=== PATIENT | female | born 1995 | race Caucasian/White ===

== ENCOUNTER 2017-01-12 02:46 | Inpatient (IN) | payer OTHER ==
[~2017-01-12] VITALS: Ht 172.7 cm; Wt 104.5 kg
[2017-01-12] VITALS (7 sets, daily range): BP systolic 101–166; BP diastolic 58–99
[~2017-01-12 02:46] MED LIST: ACET50TA PO; IBUP-1114 PO; PRENTAB29 PO; bacid PO; doxycycline PO
[2017-01-12 04:09] LABS: ALBUMIN 3.7 GM/DL (3.2-5.2); ALBUMIN/GLOBULIN RATIO 0.93 (1.00-1.93); ALKALINE PHOSPHATASE 211 U/L (45-117); ALT/SGPT 752 U/L (12-78); AMYLASE 55 U/L (25-115); ANION GAP 7 MEQ/L (8-16); AST/SGOT 317 U/L (15-37); BILIRUBIN,DIRECT 4.2 MG/DL (0.0-0.2); BILIRUBIN,TOTAL 5.4 MG/DL (0.2-1.0); BLOOD UREA NITROGEN 10 MG/DL (7-18); CALCIUM LEVEL 8.7 MG/DL (8.5-10.1); CARBON DIOXIDE LEVEL 28 MEQ/L (21-32); CHLORIDE LEVEL 105 MEQ/L (98-107); CREATININE FOR GFR 0.81 MG/DL (0.55-1.02); GLOMERULAR FILTRATION RATE > 60.0 (>60); GLUCOSE, FASTING 102 MG/DL (70-105); POTASSIUM SERUM 3.6 MEQ/L (3.5-5.1); SODIUM LEVEL 140 MEQ/L (136-145); TOTAL PROTEIN 7.7 GM/DL (6.4-8.2)
[2017-01-12 04:15] LABS: BASO # 0.1 K/mm3 (0.0-0.2); BASO % 0.6 % (0.0-1.0); EOS # 0.1 K/mm3 (0.0-0.50); EOS % 0.9 % (0.0-3.0); LARGE UNSTAINED CELL # 0.1 K/mm3 (0.0-0.4); LARGE UNSTAINED CELL % 1.1 % (0.0-4.0); LYMPH # 1.6 K/mm3 (1.5-6.5); LYMPH % 15.2 % (24.0-44.0); MEAN CORPUSCULAR HEMOGLOBIN 28.1 pg (27.0-33.0); MEAN CORPUSCULAR HGB CONC 32.6 g/dl (32.0-36.5); MONO # 0.4 K/mm3 (0.0-0.8); MONO % 3.5 % (0.0-5.0); NEUTROPHILS # 8.3 K/mm3 (1.8-7.7); NEUTROPHILS % 78.6 % (36.0-66.0); PLATELET COUNT, AUTOMATED 238 k/mm3 (150-450); RED CELL DISTRIBUTION WIDTH 15.1 % (11.5-14.5); WHITE BLOOD COUNT 10.6 K/mm3 (4.0-10.0)
--- NOTE | 2017-01-12 05:10 | REPUSA ---
CLINICAL HISTORY: Abdominal pain. TECHNIQUE: Realtime sonographic images were obtained in multiple projections. COMMENTS: The liver is of normal size, parenchyma demonstrates normal echogenicity. No discrete hepatic mass is seen. There is no intra or extrahepatic biliary ductal dilatation. CBD measures 4.9 mm. The gallbladder con tains tiny calculi. The gallbladder wall is not thickened and there is no pericholecystic fluid. Ther e is no abdominal ascites. The right kidney measures 12.5x6.1x4.5 cm, free of hydronephrosis. IMPRESSION: Cholelithiasis without acute cholecystitis. Thank you for your kind referral of this patient.
[2017-01-12] MEDS ORDERED: MORPHINE 4 MG/ML 1ML SYRINGE As Ordered ONE (05:21)
[2017-01-12] MEDS ORDERED: MORPHINE 4 MG/ML 1ML SYRINGE IV PRN (06:00)
[2017-01-12] MEDS ORDERED: ACETAMINOPHEN TAB 650MG DOSE (2X325MG) PO PRN (06:00)
[2017-01-12] MEDS ORDERED: ONDANSETRON 4MG/2ML VIAL (J2405) IV PRN ×2 (06:00→19:30)
[2017-01-12] MEDS ORDERED: CIPROFLOXACIN/D5W 400 MG/200 ML BAG (J0744) As Ordered ONE ×2 (06:36→19:16)
[2017-01-12] MEDS ORDERED: metroNIDAZOLE/NACL 500MG(5MG/ML)100 ML BAG (S0030) As Ordered ONE ×2 (07:42→16:06)
--- NOTE | 2017-01-12 07:58 | EDDOCDS ---
Nurse's Notes [facility] Name: Mary Ann Granado Age: 21 yrs Sex: Female : 1995 Arrival Date: 01/12/2017 Time: 02:46 Bed 7 Private MD: Diagnosis: Other cholelithiasis with obstruction;Cholelithiasis Presentation: 01/12 03:03 Presenting complaint: Patient states: Epigastric pain for past couple of weeks. "I ld5 can't take it anymore." + nausea/vomiting. Risk factors: the patient reports no vaginal bleeding. Adult Sepsis Screening: The patient does not have new or worsening altered mentation. Patient's respiratory rate is less than 22. Systolic blood pressure is greater than 100. Patient has a qSOFA score of 0- Negative Sepsis Screen. Suicide/Homicide risk assessment- the patient denies having any suicidal and/or homicidal ideations and does not present with any other emotional, behavioral or mental health complaints. Status: Patient is not a nutritional services host or dependent. Transition of care: patient was not received from another setting of care. 03:03 Acuity: ZAC Level 3 ld5 03:03 Method Of Arrival: Walkin/Carried/Asstd ld5 Triage Assessment: 03:05 General: Appears in no apparent distress, Behavior is cooperative. Pain: Location: ld5 epigastric area Pain currently is 7 out of 10 on a pain scale. Pain: Quality of pain is described as "feels like someone is holding me". HIV screening NA for this visit Offered previously. Neurological: Level of Consciousness is awake, alert. Respiratory: Airway is patent Respiratory effort is even, unlabored. GI: Reports nausea, vomiting, Denies constipation, diarrhea. : Denies burning with urination, pain with urination. 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 States irregular menses. Recent ld5 Historical: - Allergies: Bactrim; PENICILLINS; - Home Meds: 1. none - PMHx: none; - PSHx: right forearm/ wrist; - Social history: Smoking status: Patient uses tobacco products, current every day smoker. No barriers to communication noted, The patient speaks fluent Cypriot, Speaks appropriately for age. - Family history: Not pertinent. - : The pt / caregiver states he / she is not on anticoagulants. Home medication list is obtained from the patient. - Exposure Risk Screening:: None identified. Screenin:35 Screening information is obtained from the patient. Fall risk: No risks identified. mv5 Assistance ADL's: requires no assistance with activities of daily living. Abuse/DV Screen: The patient / caregiver reports he/she is:. Abuse/DV Screen: The patient / caregiver reports he/she is: not in a situation that causes fear, pain or injury. Nutritional screening: No deficits noted. Advance Directives: There is no active DNR order. home support is adequate. Assessment: 03:33 General: Appears uncomfortable, well nourished, well groomed, Behavior is cooperative, mv5 pleasant, Family at bedside.. Pain: Location: anterior aspect of right lateral abdomen and right upper quadrant Pain currently is 6 out of 10 on a pain scale. Neurological: Level of Consciousness is awake, alert, Oriented to person, place, time. Cardiovascular: Capillary refill < 3 seconds Heart tones S1 S2 present. Respiratory: Airway is patent Respiratory effort is even, unlabored, Respiratory pattern is regular, symmetrical. GI: Abdomen is obese, 3 months post Bowel sounds present X 4 quads. Abd is soft X 4 quads. : No deficits noted. Derm: Skin is pink, warm & dry. 05:27 General: Appears in no apparent distress. Neurological: Respiratory: Airway is patent mv5 Respiratory effort is even, unlabored, Respiratory pattern is regular, symmetrical. Derm: Skin is pink, warm & dry. 05:41 General: Appears in no apparent distress, to be sleeping. Family at bedside. General: mv5 MD in to discuss findings and plan of care.. Respiratory: Airway is patent Respiratory effort is even, unlabored, Respiratory pattern is regular, symmetrical. Derm: Skin is pink, warm & dry. 06:44 General: Appears in no apparent distress, comfortable. Respiratory: Airway is patent mv5 Respiratory effort is even, unlabored, Respiratory pattern is regular, symmetrical. Derm: Skin is pink, warm & dry. 07:53 General: Appears in no apparent distress, comfortable, Behavior is cooperative. Pain: mcp Denies pain. Neurological: No deficits noted. Respiratory: Airway is patent Respiratory effort is even, unlabored. GI: Abdomen is non- distended Abd is soft and non tender X 4 quads. Derm: Skin is pink, warm & dry. Vital Signs: 03:01 BP 134 / 85; Pulse 73; Resp 18; Temp 98.1; Pulse Ox 95% on R/A; Weight 104.33 kg (R); ld5 Height 5 ft. 8 in. (172.72 cm) (R); Pain 7/10; 05:36 BP 117 / 79 (auto/); mv5 05:37 Pulse 60 MON; Pulse Ox 94% ; mv5 06:06 BP 117 / 80 (auto/); mv5 06:06 Pulse 68 MON; Pulse Ox 93% ; mv5 06:36 BP 121 / 75 (auto/); mv5 06:36 Pulse 62 MON; Pulse Ox 91% ; mv5 07:53 BP 120 / 80; Pulse 61; Resp 18; Temp 96.4(O); Pulse Ox 95% on R/A; Pain 0/10; mcp 03:01 Body Mass Index 34.97 (104.33 kg, 172.72 cm) ld5 Vitals: 03:01 Log In Time: January 12, 2017 at 02:46. ld5 ED Course: 02:48 Patient visited by Arcadio Camarillo, Reg. pm4 02:48 Patient moved to Waiting pm4 02:59 Patient moved to Triage 1 ko2 03:04 Triage Initiated ld5 03:06 Patient visited by Diana Francois,VIRIDIANA. ld5 03:06 Daisy Sandoval,RN is Primary Nurse. ld5 03:06 Patient moved to 7 ld5 03:35 The patient / caregiver is instructed regarding the plan of care and ED course. mv5 Accompanied by Family Member, Bed in low position. 03:35 Inserted saline lock: 20 gauge in right antecubital area and blood collected. The mv5 patient tolerated the procedure well. 03:36 Patient visited by Daisy Sandoval,VIRIDIANA. mv5 03:36 [facility] [place] was scanned into [email or web address] and attached to record. hs2 03:48 Twin Rogers DO is Attending Physician. cs11 03:48 Patient visited by Twin Rogers DO. cs11 04:20 Patient moved to Ultrasound dmg 04:44 Patient visited by Tulio Gutierrez PCA. kb5 04:46 Patient moved to 7 dmg 05:14 Ultrasound Abd Limited Returned. EDMS 05:32 Patient visited by Daisy Sandoval RN. mv5 05:38 Giovany Martino MD is Hospitalizing Provider. cs11 07:12 Primary Nurse role handed off by Daisy Sandoval RN mv5 07:53 IV is patent, is free of redness or swelling. with fluids infusing freely. No mcp procedures done that require assistance. Administered Medications: 03:59 Drug: NS 0.9% 1000 ml [sodium chloride 0.9 % intravenous solution] Route: IV; Rate: mv5 bolus; Site: left antecubital; 05:26 Drug: morphine 4 mg [morphine 4 mg/mL intravenous cartridge (1 mL)] Route: IVP; Site: mv5 right antecubital; 05:57 Follow up: Response: No Adverse Reaction mv5 06:43 Drug: Ciprofloxacin 400 mg [ciprofloxacin 400 mg/200 mL in 5 % dextrose intravenous mv5 piggyback] Route: IVPB; Rate: 200 mL/hr; Infused Over: 60 mins; Site: right antecubital; 07:51 Drug: metroNIDAZOLE 500 mg [metronidazole 500 mg/100 mL-sodium chloride(iso) mcp intravenous piggyback] Route: IVPB; Rate: 100 mL/hr; Infused Over: 60 mins; Site: right antecubital; Order Results: Lab Order: CBC with Diff; SPEC'M 01/12/17 03:24 Test: WHITE BLOOD COUNT; Value: 10.6; Range: 4.0-10.0; Abnormal: Above high normal; Units: K/mm3; Status: F Test: RED BLOOD COUNT; Value: 5.22; Range: 4.00-5.40; Units: M/mm3; Status: F Test: HEMOGLOBIN; Value: 14.7; Range: 12.0-16.0; Units: g/dl; Status: F Test: HEMATOCRIT; Value: 44.9; Range: 36.0-47.0; Units: %; Status: F Test: MEAN CORPUSCULAR VOLUME; Value: 86.0; Range: 80.0-96.0; Units: fl; Status: F Test: MEAN CORPUSCULAR HEMOGLOBIN; Value: 28.1; Range: 27.0-33.0; Units: pg; Status: F Test: MEAN CORPUSCULAR HGB CONC; Value: 32.6; Range: 32.0-36.5; Units: g/dl; Status: F Test: RED CELL DISTRIBUTION WIDTH; Value: 15.1; Range: 11.5-14.5; Abnormal: Above high normal; Units: %; Status: F Test: PLATELET COUNT, AUTOMATED; Value: 238; Range: 150-450; Units: k/mm3; Status: F Test: NEUTROPHILS %; Value: 78.6; Range: 36.0-66.0; Abnormal: Above high normal; Units: %; Status: F Test: LYMPH %; Value: 15.2; Range: 24.0-44.0; Abnormal: Below low normal; Units: %; Status: F Test: MONO %; Value: 3.5; Range: 0.0-5.0; Units: %; Status: F Test: EOS %; Value: 0.9; Range: 0.0-3.0; Units: %; Status: F Test: BASO %; Value: 0.6; Range: 0.0-1.0; Units: %; Status: F Test: LARGE UNSTAINED CELL %; Value: 1.1; Range: 0.0-4.0; Units: %; Status: F Test: NEUTROPHILS #; Value: 8.3; Range: 1.8-7.7; Abnormal: Above high normal; Units: K/mm3; Status: F Test: LYMPH #; Value: 1.6; Range: 1.5-6.5; Units: K/mm3; Status: F Test: MONO #; Value: 0.4; Range: 0.0-0.8; Units: K/mm3; Status: F Test: EOS #; Value: 0.1; Range: 0.0-0.50; Units: K/mm3; Status: F Test: BASO #; Value: 0.1; Range: 0.0-0.2; Units: K/mm3; Status: F Test: LARGE UNSTAINED CELL #; Value: 0.1; Range: 0.0-0.4; Units: K/mm3; Status: F Lab Order: MED Profile; [facility] 01/12/17 03:24 Test: GLUCOSE, FASTING; Value: 102; Range: 70-105; Units: MG/DL; Status: F Test: BLOOD UREA NITROGEN; Value: 10; Range: 7-18; Units: MG/DL; Status: F Test: CREATININE FOR GFR; Value: 0.81; Range: 0.55-1.02; Units: MG/DL; Status: F Test: GLOMERULAR FILTRATION RATE; Value: > 60.0; Range: >60; Status: F Test: SODIUM LEVEL; Value: 140; Range: 136-145; Units: MEQ/L; Status: F Test: POTASSIUM SERUM; Value: 3.6; Range: 3.5-5.1; Units: MEQ/L; Status: F Test: CHLORIDE LEVEL; Value: 105; Range: 98-107; Units: MEQ/L; Status: F Test: CARBON DIOXIDE LEVEL; Value: 28; Range: 21-32; Units: MEQ/L; Status: F Test: ANION GAP; Value: 7; Range: 8-16; Abnormal: Below low normal; Units: MEQ/L; Status: F Test: CALCIUM LEVEL; Value: 8.7; Range: 8.5-10.1; Units: MG/DL; Status: F Test Note: ; Units are mL/min/1.73 m2 Chronic Kidney Disease Staging per NKF: Stage I & II GFR >=60 Normal to Mildly Decreased Stage III GFR 30-59 Moderately Decreased Stage IV GFR 15-29 Severely Decreased Stage V GFR <15 Very Little GFR Left ESRD GFR <15 on CUT IN WORKER Lab Order: Liver Profile; [facility] 01/12/17 03:24 Test: AST/SGOT; Value: 317; Range: 15-37; Abnormal: Above high normal; Units: U/L; Status: F Test: ALT/SGPT; Value: 752; Range: 12-78; Abnormal: Above high normal; Units: U/L; Status: F Test: ALKALINE PHOSPHATASE; Value: 211; Range: 45-117; Abnormal: Above high normal; Units: U/L; Status: F Test: BILIRUBIN,TOTAL; Value: 5.4; Range: 0.2-1.0; Abnormal: Above high normal; Units: MG/DL; Status: F Test: BILIRUBIN,DIRECT; Value: 4.2; Range: 0.0-0.2; Abnormal: Above high normal; Units: MG/DL; Status: F Test: TOTAL PROTEIN; Value: 7.7; Range: 6.4-8.2; Units: GM/DL; Status: F Test: ALBUMIN; Value: 3.7; Range: 3.2-5.2; Units: GM/DL; Status: F Test: ALBUMIN/GLOBULIN RATIO; Value: 0.93; Range: 1.00-1.93; Abnormal: Below low normal; Status: F Lab Order: Amylase; SPEC'M 01/12/17 03:24 Test: AMYLASE; Value: 55; Range: 25-115; Units: U/L; Status: F Lab Order: Lipase; SPEC'M 01/12/17 03:24 Test: LIPASE; Value: 357; Range: 73-393; Units: U/L; Status: F Radiology Order: Ultrasound Abd Limited Test: Ultrasound Abd Limited REASON FOR EXAMINATION: Biliary Colic; ; CLINICAL HISTORY: Abdominal pain.; TECHNIQUE: Realtime sonographic images were obtained in multiple projections.; COMMENTS:; The liver is of normal size, parenchyma demonstrates normal echogenicity. No discrete hepatic mass is; seen.; There is no intra or extrahepatic biliary ductal dilatation. CBD measures 4.9 mm. The gallbladder con; tains tiny calculi. The gallbladder wall is not thickened and there is no pericholecystic fluid. Ther; e is no abdominal ascites.; The right kidney measures 12.5x6.1x4.5 cm, free of hydronephrosis.; IMPRESSION:; Cholelithiasis without acute cholecystitis.; Thank you for your kind referral of this patient.; ; Outcome: 05:39 Decision to Hospitalize by Provider. cs11 07:55 Discharge Assessment: patient administered narcotics - yes. Patient was admitted to the [facility] or transferred to another facility. The following High Risk Discharge criteria are identified: None. Admitted to Pediatrics accompanied by tech, via stretcher, with chart. Condition: stable. Ultrasound Study completed. Property :Personal belongings accompany Pt. 07:56 Patient left the ED. [facility] Signatures: Dispatcher [employer] Anna López RN RN [facility] Anna Marie Oneill Kristopher, PCA CORE MICROARCHITECT [email or web address] Diana Francois RN RN ld5 Twin Rogers DO DO cs11 Asia GaffneyRN RN ko2 Malgorzata Dahl, Reg Reg hs2 Arcadio Camarillo, Reg Reg pm4 Daisy Sandoval,RN RN mv5 MTDD
--- NOTE | 2017-01-12 07:58 | EDDOCDS ---
Physician Documentation [facility] Name: Mary Ann Granado Age: 21 yrs Sex: Female : 1995 Arrival Date: 01/12/2017 Time: 02:46 Bed 7 Private MD: Disposition: 01/12/17 05:39 Hospitalization ordered by Giovany Martino for Inpatient Admission. Preliminary diagnosis are Other cholelithiasis with obstruction, Cholelithiasis. - Bed requested for M PED. - Status is Inpatient Admission. mcp - Condition is Stable. - Problem is an ongoing problem. - Symptoms are unchanged. Historical: - Allergies: Bactrim; PENICILLINS; - Home Meds: 1. none - PMHx: none; - PSHx: right forearm/ wrist; - Social history: Smoking status: Patient uses tobacco products, current every day smoker. No barriers to communication noted, The patient speaks fluent [place], Speaks appropriately for age. - Family history: Not pertinent. - : The pt / caregiver states he / she is not on anticoagulants. Home medication list is obtained from the patient. - Exposure Risk Screening:: None identified. 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 States irregular menses. Recent ld5 Vital Signs: 03:01 BP 134 / 85; Pulse 73; Resp 18; Temp 98.1; Pulse Ox 95% on R/A; Weight 104.33 kg / ld5 230.01 lbs (R); Height 5 ft. 8 in. (172.72 cm) (R); Pain 7/10; 05:36 BP 117 / 79 (auto/); mv5 05:37 Pulse 60 MON; Pulse Ox 94% ; mv5 06:06 BP 117 / 80 (auto/); mv5 06:06 Pulse 68 MON; Pulse Ox 93% ; mv5 06:36 BP 121 / 75 (auto/); mv5 06:36 Pulse 62 MON; Pulse Ox 91% ; mv5 07:53 BP 120 / 80; Pulse 61; Resp 18; Temp 96.4(O); Pulse Ox 95% on R/A; Pain 0/10; mcp 03:01 Body Mass Index 34.97 (104.33 kg, 172.72 cm) ld5 MDM: 03:36 [facility] Payment Agreement was scanned into [employer] and attached to record. hs2 03:48 IV Saline Lock ordered. cs11 03:48 NS 0.9% 1000 ml IV at bolus once ordered. cs11 03:49 CBC with Diff Ordered. EDMS 03:49 MED Profile Ordered. EDMS 03:49 Liver Profile Ordered. EDMS 03:49 Amylase Ordered. EDMS 03:49 Lipase Ordered. EDMS 03:49 Ultrasound Abd Limited Ordered. EDMS 03:49 Financial registration complete. hs2 04:48 morphine 4 mg IVP once ordered. cs11 05:30 CBC with Diff Reviewed. cs11 05:30 MED Profile Reviewed. cs11 05:30 Liver Profile Reviewed. cs11 05:30 Amylase Reviewed. cs11 05:30 Lipase Reviewed. cs11 05:30 Ultrasound Abd Limited Reviewed. cs11 05:35 BED REQUEST+ADM ordered. EDMS 06:05 Admission / Observation Status ordered. EDMS 06:05 NPO DIET ordered. EDMS 06:36 Ciprofloxacin 400 mg IVPB at 200 mL/hr once over 60 mins ordered. nov 07:51 metroNIDAZOLE 500 mg IVPB at 100 mL/hr once over 60 mins ordered. mcp Administered Medications: 03:59 Drug: NS 0.9% 1000 ml [sodium chloride 0.9 % intravenous solution] Route: IV; Rate: mv5 bolus; Site: left antecubital; 05:26 Drug: morphine 4 mg [morphine 4 mg/mL intravenous cartridge (1 mL)] Route: IVP; Site: mv5 right antecubital; 05:57 Follow up: Response: No Adverse Reaction mv5 06:43 Drug: Ciprofloxacin 400 mg [ciprofloxacin 400 mg/200 mL in 5 % dextrose intravenous mv5 piggyback] Route: IVPB; Rate: 200 mL/hr; Infused Over: 60 mins; Site: right antecubital; 07:51 Drug: metroNIDAZOLE 500 mg [metronidazole 500 mg/100 mL-sodium chloride(iso) mcp intravenous piggyback] Route: IVPB; Rate: 100 mL/hr; Infused Over: 60 mins; Site: right antecubital; Signatures: Dispatcher [employer] EDMS Xenia Guadarrama RN RN jan Peters, Mary, RN RN mcp Dickerson, Laura, RN RN ld5 Twin Rogers, DO cs11 Douglas Rainey RN RN [facility] Malgorzata Dahl, Reg Reg hs2 Vannedery,Daisy,RN RN mv5 The chart was reviewed and I authenticate all verbal orders and agree with the evaluation and treatment provided.Attachments: 03:36 [facility] Payment Agreement hs2 MTDD
[2017-01-12] MEDS: LR 1,000 ML IV SCH ×3 (09:01→21:58)
--- NOTE | 2017-01-12 09:35 | HPE ---
DATE OF ADMISSION: 01/12/2017 CHIEF COMPLAINT: Abdominal pain. HISTORY OF PRESENT ILLNESS: Ms. Granado is a healthy 21-year-old female, moderately obese with a body mass index (BMI) of 35, who presented herself to the emergency department early this morning with complaints of ongoing history of midepigastric pain, sometimes associated nausea and vomiting. The patient reports this has been going on for at least 1-1/2 months. She had intermittent episodes of midepigastric pain, sometimes radiating to her right side, mostly postprandial, especially with fatty food intake. She describes the pain as sharp, boring, going towards her right side and back area, usually after meals and gets better after a few hours or overnight. Sometimes this wakes her up in the middle of the night for the past week. This has been continuous with worsening pain at night. Last night, this would not get better. She reports one episode of vomiting. She is not able to tolerate any food. She denies any associated fevers or chills. No associated sick contacts. Due to the severity of pain, she presented herself to the emergency department. ALLERGIES: To BACTRIM and to PENICILLIN. HOME MEDICATIONS: None. PAST MEDICAL HISTORY: No chronic medical illness. PAST SURGICAL HISTORY: Right forearm/wrist surgery. GYNECOLOGIC HISTORY: G1, P1, gave via vaginal route back in September 2016. Reports preeclampsia that time. Denies gestational diabetes. REVIEW OF SYSTEMS: The patient reports mild loss in weight. This is voluntary. She denies fevers, chills. She reports some mild anorexia due to the pain. She denies any blurring of vision, problems with her hearing. She denies any problems with swallowing, dysphagia, hoarseness in her voice. She denies any neck pains. Denies any chest pains or palpitations or paroxysmal nocturnal dyspnea. She denies any dyspnea on effort. No chronic cough or colds reported. Gastrointestinal symptoms enumerated in the history of present illness (HPI). She denies any dysuria, hematuria, nocturia. No history of diabetes, gestational diabetes reported. No thyroid problems. Denies polydipsia, polyphagia, polyuria. No heat or cold intolerance. She denies any bleeding or clotting problems. Denies any severe psychiatric impairment. She has recently a fairly uneventful . Did have some mild preeclampsia, delivered vaginally without any problems. EXAMINATION: On presentation, her initial vitals at about 3 in the morning shows blood pressure of 134/85, pulse rate is 73, respiratory of 18, temperature of 98.1, pulse oximetry reading 95% in room air, weight is 104.3 kg, height is 172 cm, gives her a BMI of 35. Initial pain rated at 7/10, currently rates pain as 4/10. The patient is seen laying in a bed, appears comfortable. No acute distress. She is awake, alert, and oriented. She is cooperative. Skin is mildly jaundiced. A mildly icteric sclerae. [place] palpebral conjunctiva. She is normocephalic, atraumatic. Lips appear mildly dry. No facial asymmetry. No thyromegaly. Neck is supple. No obvious lymphadenopathy. No chest wall abnormalities. Lung sounds are clear to auscultation bilaterally. No wheezing appreciated. Heart rate and rhythm is regular without any murmurs. Abdomen: Is soft, moderately obese, and rounded, nondistended. Minimally tender over her epigastric area. No rebound or guarding appreciated. Nontender on the lateral abdomen bilaterally. No umbilical or groin herniations. No hepatosplenomegaly. Extremities: Without any edema, deformities. LABORATORIES: White cell count is 10.6, hemoglobin 14.7, hematocrit 44.9, platelet count is 238, neutrophils are 79%. Sodium is 148, potassium is 3.6, chloride is 105, CO2 of 28, BUN of 10, creatinine 0.81, total bilirubin is 5.4, with direct fraction of 4.2, AST 317, ALT 752, alkaline phosphatase is 211, albumin is 3.7, amylase is 55, lipase of 357. IMAGING STUDIES: An abdominal ultrasound was performed in the emergency room. It shows common bile duct measuring 4.9 mm, which is upper limit of normal for her. Gallbladder wall is not thickened. There is no pericholecystic fluid. No abdominal ascites. IMPRESSION: 1. Jaundice secondary to biliary obstruction, most likely from a choledocholithiasis. 2. Cholelithiasis. 3. Moderate obesity. PLAN: The patient is admitted under my service. She was made nothing by mouth. We have started on ciprofloxacin and metronidazole for coverage for possible biliary infection secondary to the obstruction. She will need an endoscopic retrograde cholangiopancreatography (ERCP). I have contacted Dr. Galvez, and he will see the patient. I will leave it up to him if he needs any further imaging prior to the ERCP. I have also discussed with the patient performing cholecystectomy. This can be done either during this admission or an interval cholecystectomy, usually short interval is only needed, given that there is not much inflammation on the initial imaging studies. Otherwise, no signs of sepsis. No signs of cholangitis. Will keep her nothing by mouth while she is being evaluated by our gastroenterology colleague. I have discussed the plans with her. She is in agreement with our plan of therapy. No questions, concerns voiced out at this point.
[2017-01-12] MEDS: SENOKOT S TAB PO SCH ×2 (11:50→20:38)
[2017-01-12] MEDS ORDERED: ISOVUE-300 61% 50ML VIAL (Q9967) As Ordered ONE ×2 (13:18→18:25)
[2017-01-12] MEDS: NORCO, ANEXSIA 5/325MG TABLET (HYDROcodone/ACETAMINOPHEN) PO PRN ×2 (14:58→20:51)
[2017-01-12] MEDS ORDERED: LIDOCAINE 2% INJ 100 MG/5 ML SDV (FOR ANES.) As Ordered ONE (15:44)
[2017-01-12] MEDS ORDERED: fentaNYL 250 MCG/5 ML INJECTION (J3010) As Ordered ONE (15:44)
[2017-01-12] MEDS ORDERED: MIDAZOLAM INJ 2 MG/2 ML VIAL (J2250) As Ordered ONE (15:44)
[2017-01-12] MEDS ORDERED: PROPOFOL 200 MG/20 ML VIAL As Ordered ONE (15:44)
[2017-01-12] MEDS: metroNIDAZOLE 500 MG in APPROPRIATE DILUENT 1 EA IV SCH (16:00)
[2017-01-12 16:29] LABS: CONTROL LINE HCG INT CTR LINE PRESENT
[2017-01-12] MEDS ORDERED: ROCURONIUM BROMIDE 50 MG/5 ML VIAL As Ordered ONE (16:54)
[2017-01-12] MEDS ORDERED: ONDANSETRON 4MG/2ML VIAL (J2405) As Ordered ONE ×2 (17:04→19:04)
[2017-01-12] MEDS ORDERED: SUCCINYLCHOLINE 100 MG/5 ML SYRINGE (J0330) As Ordered ONE (17:05)
[2017-01-12] MEDS ORDERED: NEOSTIGMINE 1MG/ML 5 ML SYRINGE (J2710) As Ordered ONE (17:06)
[2017-01-12] MEDS ORDERED: GLYCOPYRROLATE INJ 0.2 MG/ML 2 ML VIAL As Ordered ONE (17:06)
[2017-01-12] MEDS ORDERED: ISOVUE-300 61% 50ML VIAL (Q9967) XX ONE (17:08)
--- NOTE | 2017-01-12 18:56 | ROOR ---
Patient Name: Mary Ann Granado Procedure Date: 01/12/2017 4:37 PM Date of : 1995 Age: 21 Room: Main OR Gender: Female Note Status: Finalized Procedure: ERCP Indications: Evaluation and possible treatment of bile duct stone(s), Jaundice Providers: Claude GALVEZ MD Referring MD: 2. Inpatient 2. Inpatient Requesting Provider: Medicines: General Anesthesia Complications: No immediate complications. Procedure: Pre-Anesthesia Assessment: - The heart rate, respiratory rate, oxygen saturations, blood pressure, adequacy of pulmonary ventilation, and response to care were monitored throughout the procedure. The Duodenoscope was introduced through the mouth, and advanced to the duodenum and used to inject contrast into the bile duct and ventral pancreatic duct. The ERCP was technically difficult and complex due to challenging cannulation. Successful completion of the procedure was aided by double wire technique. The patient tolerated the procedure well. Findings: The plumber supervisor film was normal. The esophagus was successfully intubated under direct vision. The scope was advanced to a normal major papilla in the descending duodenum without detailed examination of the pharynx, larynx and associated structures, and upper GI tract. The upper GI tract was grossly normal. The ventral pancreatic duct was deeply cannulated. Contrast was injected. I personally interpreted the pancreatic duct images. There was appropriate flow of contrast through the ducts. Image quality was adequate. Opacification of the ventral pancreatic duct in the head of the pancreas was successful. The maximum diameter of the ducts was 2 mm. The ventral pancreatic duct in the head of the pancreas was normal. A straight Roadrunner wire was passed into the biliary tree. The bile duct was then deeply cannulated over the guidewire. Contrast was injected. Opacification of the main bile duct was successful. The maximum diameter of the ducts was 8 mm. The lower third of the main bile duct contained two stones, the largest of which was 5 mm in diameter. Choledocholithiasis was found in a nondilated duct. An 8 mm biliary sphincterotomy was made with a monofilament traction (standard) sphincterotome using ERBE electrocautery. There was no post-sphincterotomy bleeding. The biliary tree was swept with a 9 mm balloon starting at the bifurcation. Two stones were removed. No stones remained. One 4 Fr by 3 cm temporary stent with a 3/4 internal pigtail was placed into the ventral pancreatic duct. Clear fluid flowed through the stent. The stent was in good position. Impression: - Choledocholithiasis was found. Complete removal was accomplished by biliary sphincterotomy and balloon extraction. - A biliary sphincterotomy was performed. - The biliary tree was swept. - One temporary stent was placed into the ventral pancreatic duct. Recommendation: - Indomethacin 50 mg suppository. 2 suppositories RI post op. - Observe patient's clinical course. - Surgical consultation for consideration of cholecystectomy. - Clear liquid diet today. - Confirm spontaneous stent passage by performing a KUB x-ray in 2 weeks. Claude Galvez MD Claude GALVEZ MD 01/12/2017 6:55:43 PM This report has been signed electronically. Number of Addenda: 0 Note Initiated On: 01/12/2017 4:37 PM Estimated Blood Loss: Estimated blood loss: none.
[2017-01-12] MEDS ORDERED: INDOMETHACIN 50 MG SUPPOSITORY (INDOCIN) As Ordered ONE (19:12)
[2017-01-12] MEDS: CIPROFLOXACIN 400 MG in APPROPRIATE DILUENT 1 EA IV SCH (19:25)
[2017-01-12] MEDS ORDERED: LR 1,000 ML IV SCH (19:30)
[2017-01-12] MEDS ORDERED: fentaNYL 100 MCG/2 ML INJECTION (J3010) IV PRN (19:30)
[2017-01-12] MEDS ORDERED: INDOMETHACIN 50 MG SUPPOSITORY (INDOCIN) PR ONE (19:30)
[2017-01-12] MEDS ORDERED: METOCLOPRAMIDE INJ 10MG/2ML VIAL (J2765) As Ordered ONE (19:41)
[2017-01-12] MEDS ORDERED: METOCLOPRAMIDE INJ 10MG/2ML VIAL (J2765) IV PRN (20:00)
[2017-01-13] MEDS: LR 1,000 ML IV SCH ×3 (00:50→23:53)
[2017-01-13] MEDS: metroNIDAZOLE 500 MG in APPROPRIATE DILUENT 1 EA IV SCH ×4 (00:50→23:53)
[2017-01-13 04:00] VITALS: BP 92/49
[2017-01-13] MEDS: CIPROFLOXACIN 400 MG in APPROPRIATE DILUENT 1 EA IV SCH ×2 (06:40→18:15)
[2017-01-13 08:00] VITALS: BP 126/65
[2017-01-13] MEDS: SENOKOT S TAB PO SCH ×2 (08:29→21:00)
[2017-01-13] MEDS: NORCO, ANEXSIA 5/325MG TABLET (HYDROcodone/ACETAMINOPHEN) PO PRN (08:40)
[2017-01-13 08:44] LABS: BASO % 0.5 % (0.0-1.0); EOS # 0.1 K/mm3 (0.0-0.50); EOS % 1.1 % (0.0-3.0); LARGE UNSTAINED CELL # 0.1 K/mm3 (0.0-0.4); LARGE UNSTAINED CELL % 1.4 % (0.0-4.0); LYMPH # 1.8 K/mm3 (1.5-6.5); MEAN CORPUSCULAR HEMOGLOBIN 28.1 pg (27.0-33.0); MEAN CORPUSCULAR HGB CONC 31.9 g/dl (32.0-36.5); MEAN CORPUSCULAR VOLUME 88.3 fl (80.0-96.0); MONO # 0.4 K/mm3 (0.0-0.8); NEUTROPHILS # 4.6 K/mm3 (1.8-7.7); PLATELET COUNT, AUTOMATED 211 k/mm3 (150-450)
[2017-01-13 08:45] LABS: DIFF SLIDE NUMBER 155
[2017-01-13 09:30] LABS: ALKALINE PHOSPHATASE 189 U/L (45-117); ALT/SGPT 459 U/L (12-78); AMYLASE 323 U/L (25-115); ANION GAP 9 MEQ/L (8-16); BLOOD UREA NITROGEN 5 MG/DL (7-18); CALCIUM LEVEL 8.4 MG/DL (8.5-10.1); CARBON DIOXIDE LEVEL 26 MEQ/L (21-32); CHLORIDE LEVEL 107 MEQ/L (98-107); CREATININE FOR GFR 0.75 MG/DL (0.55-1.02); GLOMERULAR FILTRATION RATE > 60.0 (>60); GLUCOSE, FASTING 95 MG/DL (70-105); POTASSIUM SERUM 3.8 MEQ/L (3.5-5.1); SODIUM LEVEL 142 MEQ/L (136-145)
[2017-01-13 09:31] LABS: ALBUMIN 3.2 GM/DL (3.2-5.2); ALBUMIN/GLOBULIN RATIO 0.97 (1.00-1.93); AST/SGOT 121 U/L (15-37); TOTAL PROTEIN 6.5 GM/DL (6.4-8.2)
[2017-01-13 09:33] LABS: BILIRUBIN,TOTAL 5.1 MG/DL (0.2-1.0)
[2017-01-13 16:00] VITALS: BP 133/76
[2017-01-13 20:00] VITALS: BP 128/80
[2017-01-14] VITALS (7 sets, daily range): BP systolic 110–174; BP diastolic 64–86
[2017-01-14] MEDS: CIPROFLOXACIN 400 MG in APPROPRIATE DILUENT 1 EA IV SCH ×2 (06:25→19:00)
[2017-01-14] MEDS: LR 1,000 ML IV SCH ×3 (06:25→20:43)
[2017-01-14 07:09] LABS: BASO % 0.6 % (0.0-1.0); EOS # 0.1 K/mm3 (0.0-0.50); LARGE UNSTAINED CELL # 0.2 K/mm3 (0.0-0.4); LARGE UNSTAINED CELL % 2.5 % (0.0-4.0); LYMPH # 1.8 K/mm3 (1.5-6.5); LYMPH % 29.1 % (24.0-44.0); MEAN CORPUSCULAR HEMOGLOBIN 28.1 pg (27.0-33.0); MEAN CORPUSCULAR HGB CONC 32.3 g/dl (32.0-36.5); MEAN CORPUSCULAR VOLUME 87.1 fl (80.0-96.0); MONO # 0.3 K/mm3 (0.0-0.8); MONO % 4.7 % (0.0-5.0); NEUTROPHILS # 3.7 K/mm3 (1.8-7.7); NEUTROPHILS % 62.1 % (36.0-66.0); PLATELET COUNT, AUTOMATED 187 k/mm3 (150-450); RED CELL DISTRIBUTION WIDTH 15.5 % (11.5-14.5)
[2017-01-14 07:27] LABS: ALBUMIN 3.1 GM/DL (3.2-5.2); ALBUMIN/GLOBULIN RATIO 0.97 (1.00-1.93); ALKALINE PHOSPHATASE 181 U/L (45-117); ALT/SGPT 323 U/L (12-78); AMYLASE 204 U/L (25-115); ANION GAP 8 MEQ/L (8-16); AST/SGOT 68 U/L (15-37); BLOOD UREA NITROGEN 5 MG/DL (7-18); CALCIUM LEVEL 8.5 MG/DL (8.5-10.1); CARBON DIOXIDE LEVEL 27 MEQ/L (21-32); CHLORIDE LEVEL 107 MEQ/L (98-107); CREATININE FOR GFR 0.61 MG/DL (0.55-1.02); GLOMERULAR FILTRATION RATE > 60.0 (>60); GLUCOSE, FASTING 78 MG/DL (70-105); POTASSIUM SERUM 3.8 MEQ/L (3.5-5.1); SODIUM LEVEL 142 MEQ/L (136-145); TOTAL PROTEIN 6.3 GM/DL (6.4-8.2)
[2017-01-14] MEDS: metroNIDAZOLE 500 MG in APPROPRIATE DILUENT 1 EA IV SCH ×2 (08:17→15:28)
[2017-01-14] MEDS: SENOKOT S TAB PO SCH ×2 (08:17→20:41)
--- NOTE | 2017-01-14 08:57 | EDDOCDS ---
Nurse's Notes [facility] Name: Mary Ann Granado Age: 21 yrs Sex: Female : 1995 Arrival Date: 01/12/2017 Time: 02:46 Bed 7 Private MD: Diagnosis: Other cholelithiasis with obstruction;Cholelithiasis Presentation: 01/12 03:03 Presenting complaint: Patient states: Epigastric pain for past couple of weeks. "I ld5 can't take it anymore." + nausea/vomiting. Risk factors: the patient reports no vaginal bleeding. Adult Sepsis Screening: The patient does not have new or worsening altered mentation. Patient's respiratory rate is less than 22. Systolic blood pressure is greater than 100. Patient has a qSOFA score of 0- Negative Sepsis Screen. Suicide/Homicide risk assessment- the patient denies having any suicidal and/or homicidal ideations and does not present with any other emotional, behavioral or mental health complaints. 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 Transition of care: patient was not received from another setting of care. 03:03 Acuity: ZAC Level 3 ld5 03:03 Method Of Arrival: Walkin/Carried/Asstd ld5 Triage Assessment: 03:05 General: Appears in no apparent distress, Behavior is cooperative. Pain: Location: ld5 epigastric area Pain currently is 7 out of 10 on a pain scale. Pain: Quality of pain is described as "feels like someone is holding me". HIV screening NA for this visit Offered previously. Neurological: Level of Consciousness is awake, alert. Respiratory: Airway is patent Respiratory effort is even, unlabored. GI: Reports nausea, vomiting, Denies constipation, diarrhea. : Denies burning with urination, pain with urination. 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 States irregular menses. Recent ld5 Historical: - Allergies: Bactrim; PENICILLINS; - Home Meds: 1. none - PMHx: none; - PSHx: right forearm/ wrist; - Social history: Smoking status: Patient uses tobacco products, current every day smoker. No barriers to communication noted, The patient speaks fluent Chinese, Speaks appropriately for age. - Family history: Not pertinent. - : The pt / caregiver states he / she is not on anticoagulants. Home medication list is obtained from the patient. - Exposure Risk Screening:: None identified. Screenin:35 Screening information is obtained from the patient. Fall risk: No risks identified. mv5 Assistance ADL's: requires no assistance with activities of daily living. Abuse/DV Screen: The patient / caregiver reports he/she is:. Abuse/DV Screen: The patient / caregiver reports he/she is: not in a situation that causes fear, pain or injury. Nutritional screening: No deficits noted. Advance Directives: There is no active DNR order. home support is adequate. Assessment: 03:33 General: Appears uncomfortable, well nourished, well groomed, Behavior is cooperative, mv5 pleasant, Family at bedside.. Pain: Location: anterior aspect of right lateral abdomen and right upper quadrant Pain currently is 6 out of 10 on a pain scale. Neurological: Level of Consciousness is awake, alert, Oriented to person, place, time. Cardiovascular: Capillary refill < 3 seconds Heart tones S1 S2 present. Respiratory: Airway is patent Respiratory effort is even, unlabored, Respiratory pattern is regular, symmetrical. GI: Abdomen is obese, 3 months post Bowel sounds present X 4 quads. Abd is soft X 4 quads. : No deficits noted. Derm: Skin is pink, warm & dry. 05:27 General: Appears in no apparent distress. Neurological: Respiratory: Airway is patent mv5 Respiratory effort is even, unlabored, Respiratory pattern is regular, symmetrical. Derm: Skin is pink, warm & dry. 05:41 General: Appears in no apparent distress, to be sleeping. Family at bedside. General: mv5 MD in to discuss findings and plan of care.. Respiratory: Airway is patent Respiratory effort is even, unlabored, Respiratory pattern is regular, symmetrical. Derm: Skin is pink, warm & dry. 06:44 General: Appears in no apparent distress, comfortable. Respiratory: Airway is patent mv5 Respiratory effort is even, unlabored, Respiratory pattern is regular, symmetrical. Derm: Skin is pink, warm & dry. 07:53 General: Appears in no apparent distress, comfortable, Behavior is cooperative. Pain: mcp Denies pain. Neurological: No deficits noted. Respiratory: Airway is patent Respiratory effort is even, unlabored. GI: Abdomen is non- distended Abd is soft and non tender X 4 quads. Derm: Skin is pink, warm & dry. Vital Signs: 03:01 BP 134 / 85; Pulse 73; Resp 18; Temp 98.1; Pulse Ox 95% on R/A; Weight 104.33 kg (R); ld5 Height 5 ft. 8 in. (172.72 cm) (R); Pain 7/10; 05:36 BP 117 / 79 (auto/); mv5 05:37 Pulse 60 MON; Pulse Ox 94% ; mv5 06:06 BP 117 / 80 (auto/); mv5 06:06 Pulse 68 MON; Pulse Ox 93% ; mv5 06:36 BP 121 / 75 (auto/); mv5 06:36 Pulse 62 MON; Pulse Ox 91% ; mv5 07:53 BP 120 / 80; Pulse 61; Resp 18; Temp 96.4(O); Pulse Ox 95% on R/A; Pain 0/10; mcp 03:01 Body Mass Index 34.97 (104.33 kg, 172.72 cm) ld5 Vitals: 03:01 Log In Time: January 12, 2017 at 02:46. ld5 ED Course: 02:48 Patient visited by Arcadio Camarillo, Reg. pm4 02:48 Patient moved to Waiting pm4 02:59 Patient moved to Triage 1 ko2 03:04 Triage Initiated ld5 03:06 Patient visited by Diana Francois,VIRIDIANA. ld5 03:06 Daisy Sandoval,RN is Primary Nurse. ld5 03:06 Patient moved to 7 ld5 03:35 The patient / caregiver is instructed regarding the plan of care and ED course. mv5 Accompanied by Family Member, Bed in low position. 03:35 Inserted saline lock: 20 gauge in right antecubital area and blood collected. The mv5 patient tolerated the procedure well. 03:36 Patient visited by Daisy Sandoval,VIRIDIANA. mv5 03:36 [facility] Payment Agreement was scanned into [employer] and attached to record. hs2 03:48 Twin Rogers DO is Attending Physician. cs11 03:48 Patient visited by Twin Rogers DO. cs11 04:20 Patient moved to Ultrasound dmg 04:44 Patient visited by Tulio Gutierrez PCA. kb5 04:46 Patient moved to 7 dmg 05:14 Ultrasound Abd Limited Returned. EDMS 05:32 Patient visited by Daisy Sandoval RN. mv5 05:38 Giovany Martino MD is Hospitalizing Provider. cs11 07:12 Primary Nurse role handed off by Daisy Sandoval RN mv5 07:53 IV is patent, is free of redness or swelling. with fluids infusing freely. No mcp procedures done that require assistance. 01/13 13:07 T-Sheet-- Draft Copy was scanned into [employer] and attached to record. gb Administered Medications: 01/12 03:59 Drug: NS 0.9% 1000 ml [sodium chloride 0.9 % intravenous solution] Route: IV; Rate: mv5 bolus; Site: left antecubital; 05:26 Drug: morphine 4 mg [morphine 4 mg/mL intravenous cartridge (1 mL)] Route: IVP; Site: mv5 right antecubital; 05:57 Follow up: Response: No Adverse Reaction mv5 06:43 Drug: Ciprofloxacin 400 mg [ciprofloxacin 400 mg/200 mL in 5 % dextrose intravenous mv5 piggyback] Route: IVPB; Rate: 200 mL/hr; Infused Over: 60 mins; Site: right antecubital; 07:51 Drug: metroNIDAZOLE 500 mg [metronidazole 500 mg/100 mL-sodium chloride(iso) mcp intravenous piggyback] Route: IVPB; Rate: 100 mL/hr; Infused Over: 60 mins; Site: right antecubital; Order Results: Lab Order: CBC with Diff; SPEC'M 01/12/17 03:24 Test: WHITE BLOOD COUNT; Value: 10.6; Range: 4.0-10.0; Abnormal: Above high normal; Units: K/mm3; Status: F Test: RED BLOOD COUNT; Value: 5.22; Range: 4.00-5.40; Units: M/mm3; Status: F Test: HEMOGLOBIN; Value: 14.7; Range: 12.0-16.0; Units: g/dl; Status: F Test: HEMATOCRIT; Value: 44.9; Range: 36.0-47.0; Units: %; Status: F Test: MEAN CORPUSCULAR VOLUME; Value: 86.0; Range: 80.0-96.0; Units: fl; Status: F Test: MEAN CORPUSCULAR HEMOGLOBIN; Value: 28.1; Range: 27.0-33.0; Units: pg; Status: F Test: MEAN CORPUSCULAR HGB CONC; Value: 32.6; Range: 32.0-36.5; Units: g/dl; Status: F Test: RED CELL DISTRIBUTION WIDTH; Value: 15.1; Range: 11.5-14.5; Abnormal: Above high normal; Units: %; Status: F Test: PLATELET COUNT, AUTOMATED; Value: 238; Range: 150-450; Units: k/mm3; Status: F Test: NEUTROPHILS %; Value: 78.6; Range: 36.0-66.0; Abnormal: Above high normal; Units: %; Status: F Test: LYMPH %; Value: 15.2; Range: 24.0-44.0; Abnormal: Below low normal; Units: %; Status: F Test: MONO %; Value: 3.5; Range: 0.0-5.0; Units: %; Status: F Test: EOS %; Value: 0.9; Range: 0.0-3.0; Units: %; Status: F Test: BASO %; Value: 0.6; Range: 0.0-1.0; Units: %; Status: F Test: LARGE UNSTAINED CELL %; Value: 1.1; Range: 0.0-4.0; Units: %; Status: F Test: NEUTROPHILS #; Value: 8.3; Range: 1.8-7.7; Abnormal: Above high normal; Units: K/mm3; Status: F Test: LYMPH #; Value: 1.6; Range: 1.5-6.5; Units: K/mm3; Status: F Test: MONO #; Value: 0.4; Range: 0.0-0.8; Units: K/mm3; Status: F Test: EOS #; Value: 0.1; Range: 0.0-0.50; Units: K/mm3; Status: F Test: BASO #; Value: 0.1; Range: 0.0-0.2; Units: K/mm3; Status: F Test: LARGE UNSTAINED CELL #; Value: 0.1; Range: 0.0-0.4; Units: K/mm3; Status: F Lab Order: MED Profile; SPEC'M 01/12/17 03:24 Test: GLUCOSE, FASTING; Value: 102; Range: 70-105; Units: MG/DL; Status: F Test: BLOOD UREA NITROGEN; Value: 10; Range: 7-18; Units: MG/DL; Status: F Test: CREATININE FOR GFR; Value: 0.81; Range: 0.55-1.02; Units: MG/DL; Status: F Test: GLOMERULAR FILTRATION RATE; Value: > 60.0; Range: >60; Status: F Test: SODIUM LEVEL; Value: 140; Range: 136-145; Units: MEQ/L; Status: F Test: POTASSIUM SERUM; Value: 3.6; Range: 3.5-5.1; Units: MEQ/L; Status: F Test: CHLORIDE LEVEL; Value: 105; Range: 98-107; Units: MEQ/L; Status: F Test: CARBON DIOXIDE LEVEL; Value: 28; Range: 21-32; Units: MEQ/L; Status: F Test: ANION GAP; Value: 7; Range: 8-16; Abnormal: Below low normal; Units: MEQ/L; Status: F Test: CALCIUM LEVEL; Value: 8.7; Range: 8.5-10.1; Units: MG/DL; Status: F Test Note: ; Units are mL/min/1.73 m2 Chronic Kidney Disease Staging per NKF: Stage I & II GFR >=60 Normal to Mildly Decreased Stage III GFR 30-59 Moderately Decreased Stage IV GFR 15-29 Severely Decreased Stage V GFR <15 Very Little GFR Left ESRD GFR <15 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' 01/12/17 03:24 Test: AST/SGOT; Value: 317; Range: 15-37; Abnormal: Above high normal; Units: U/L; Status: F Test: ALT/SGPT; Value: 752; Range: 12-78; Abnormal: Above high normal; Units: U/L; Status: F Test: ALKALINE PHOSPHATASE; Value: 211; Range: 45-117; Abnormal: Above high normal; Units: U/L; Status: F Test: BILIRUBIN,TOTAL; Value: 5.4; Range: 0.2-1.0; Abnormal: Above high normal; Units: MG/DL; Status: F Test: BILIRUBIN,DIRECT; Value: 4.2; Range: 0.0-0.2; Abnormal: Above high normal; Units: MG/DL; Status: F Test: TOTAL PROTEIN; Value: 7.7; Range: 6.4-8.2; Units: GM/DL; Status: F Test: ALBUMIN; Value: 3.7; Range: 3.2-5.2; Units: GM/DL; Status: F Test: ALBUMIN/GLOBULIN RATIO; Value: 0.93; Range: 1.00-1.93; Abnormal: Below low normal; Status: F Lab Order: Amylase; SPEC'M 01/12/17 03:24 Test: AMYLASE; Value: 55; Range: 25-115; Units: U/L; Status: F Lab Order: Lipase; SPEC'M 01/12/17 03:24 Test: LIPASE; Value: 357; Range: 73-393; Units: U/L; Status: F Radiology Order: Ultrasound Abd Limited Test: Ultrasound Abd Limited REASON FOR EXAMINATION: Biliary Colic; ; CLINICAL HISTORY: Abdominal pain.; TECHNIQUE: Realtime sonographic images were obtained in multiple projections.; COMMENTS:; The liver is of normal size, parenchyma demonstrates normal echogenicity. No discrete hepatic mass is; seen.; There is no intra or extrahepatic biliary ductal dilatation. CBD measures 4.9 mm. The gallbladder con; tains tiny calculi. The gallbladder wall is not thickened and there is no pericholecystic fluid. Ther; e is no abdominal ascites.; The right kidney measures 12.5x6.1x4.5 cm, free of hydronephrosis.; IMPRESSION:; Cholelithiasis without acute cholecystitis.; Thank you for your kind referral of this patient.; ; Outcome: 05:39 Decision to Hospitalize by Provider. cs11 07:55 Discharge Assessment: patient administered narcotics - yes. Patient was admitted to the [facility] hospital or transferred to another facility. The following High Risk Discharge criteria are identified: None. Admitted to Pediatrics accompanied by tech, via stretcher, with chart. Condition: stable. Ultrasound Study completed. Property :Personal belongings accompany Pt. 07:56 Patient left the ED. [facility] Signatures: Dispatcher [employer] Anna López RN RN [facility] Anna Marie Oneill Gloria, Reg Reg gb Tulio Gutierrez, REIMBURSEMENT DIRECTOR REIMBURSEMENT DIRECTOR kb5 Diana Francois,RN RN ld5 Twin Rogers, DO DO cs11 Asia Gaffney,RN RN ko2 Malgorzata Dahl, Reg Reg hs2 Arcadio Camarillo, Reg Reg pm4 Daisy Sandoval,RN RN mv5 Chart Complete MTDD
--- NOTE | 2017-01-14 08:57 | EDDOCDS ---
Physician Documentation [facility] Name: Mary Ann Granado Age: 21 yrs Sex: Female : 1995 Arrival Date: 01/12/2017 Time: 02:46 Bed 7 Private MD: Disposition: 01/12/17 05:39 Hospitalization ordered by Giovany Martino for Inpatient Admission. Preliminary diagnosis are Other cholelithiasis with obstruction, Cholelithiasis. - Bed requested for M PED. - Status is Inpatient Admission. mcp - Condition is Stable. - Problem is an ongoing problem. - Symptoms are unchanged. Historical: - Allergies: Bactrim; PENICILLINS; - Home Meds: 1. none - PMHx: none; - PSHx: right forearm/ wrist; - Social history: Smoking status: Patient uses tobacco products, current every day smoker. No barriers to communication noted, The patient speaks fluent Tajik, Speaks appropriately for age. - Family history: Not pertinent. - : The pt / caregiver states he / she is not on anticoagulants. Home medication list is obtained from the patient. - Exposure Risk Screening:: None identified. 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 States irregular menses. Recent ld5 Vital Signs: 03:01 BP 134 / 85; Pulse 73; Resp 18; Temp 98.1; Pulse Ox 95% on R/A; Weight 104.33 kg / ld5 230.01 lbs (R); Height 5 ft. 8 in. (172.72 cm) (R); Pain 7/10; 05:36 BP 117 / 79 (auto/); mv5 05:37 Pulse 60 MON; Pulse Ox 94% ; mv5 06:06 BP 117 / 80 (auto/); mv5 06:06 Pulse 68 MON; Pulse Ox 93% ; mv5 06:36 BP 121 / 75 (auto/); mv5 06:36 Pulse 62 MON; Pulse Ox 91% ; mv5 07:53 BP 120 / 80; Pulse 61; Resp 18; Temp 96.4(O); Pulse Ox 95% on R/A; Pain 0/10; mcp 03:01 Body Mass Index 34.97 (104.33 kg, 172.72 cm) ld5 MDM: 03:36 [facility] Payment Agreement was scanned into [employer] and attached to record. hs2 03:48 IV Saline Lock ordered. cs11 03:48 NS 0.9% 1000 ml IV at bolus once ordered. cs11 03:49 CBC with Diff Ordered. EDMS 03:49 MED Profile Ordered. EDMS 03:49 Liver Profile Ordered. EDMS 03:49 Amylase Ordered. EDMS 03:49 Lipase Ordered. EDMS 03:49 Ultrasound Abd Limited Ordered. EDMS 03:49 Financial registration complete. hs2 04:48 morphine 4 mg IVP once ordered. cs11 05:30 CBC with Diff Reviewed. cs11 05:30 MED Profile Reviewed. cs11 05:30 Liver Profile Reviewed. cs11 05:30 Amylase Reviewed. cs11 05:30 Lipase Reviewed. cs11 05:30 Ultrasound Abd Limited Reviewed. cs11 05:35 BED REQUEST+ADM ordered. EDMS 06:05 Admission / Observation Status ordered. EDMS 06:05 NPO DIET ordered. EDMS 06:36 Ciprofloxacin 400 mg IVPB at 200 mL/hr once over 60 mins ordered. nov 07:51 metroNIDAZOLE 500 mg IVPB at 100 mL/hr once over 60 mins ordered. [facility] 01/13 13:07 T-Sheet-- Draft Copy was scanned into [employer] and attached to record. gb Administered Medications: 01/12 03:59 Drug: NS 0.9% 1000 ml [sodium chloride 0.9 % intravenous solution] Route: IV; Rate: mv5 bolus; Site: left antecubital; 05:26 Drug: morphine 4 mg [morphine 4 mg/mL intravenous cartridge (1 mL)] Route: IVP; Site: mv5 right antecubital; 05:57 Follow up: Response: No Adverse Reaction mv5 06:43 Drug: Ciprofloxacin 400 mg [ciprofloxacin 400 mg/200 mL in 5 % dextrose intravenous mv5 piggyback] Route: IVPB; Rate: 200 mL/hr; Infused Over: 60 mins; Site: right antecubital; 07:51 Drug: metroNIDAZOLE 500 mg [metronidazole 500 mg/100 mL-sodium chloride(iso) [facility] intravenous piggyback] Route: IVPB; Rate: 100 mL/hr; Infused Over: 60 mins; Site: right antecubital; Signatures: Dispatcher [employer] EDMS Xenia Guadarrama RN RN jan Peters, Mary, RN RN [facility] Elizabeth Uribe, Diana BurnetteRN RN ld5 Twin Rogers, DO cs11 Douglas Rainey RN RN mts Malgorzata Dahl, Reg Reg hs2 Daisy Sandoval,RN RN mv5 The chart was reviewed and I authenticate all verbal orders and agree with the evaluation and treatment provided.Attachments: 03:36 [facility] Payment Agreement hs2 01/13 13:07 T-Sheet-- Draft Copy gb Chart Complete MTDD
--- NOTE | 2017-01-14 08:57 | EDDOCDS ---
Physician Documentation [facility] Name: Mary Ann Granado Age: 21 yrs Sex: Female : 1995 Arrival Date: 01/12/2017 Time: 02:46 Bed 7 Private MD: Disposition: 01/12/17 05:39 Hospitalization ordered by Giovany Martino for Inpatient Admission. Preliminary diagnosis are Other cholelithiasis with obstruction, Cholelithiasis. - Bed requested for M PED. - Status is Inpatient Admission. mcp - Condition is Stable. - Problem is an ongoing problem. - Symptoms are unchanged. Historical: - Allergies: Bactrim; PENICILLINS; - Home Meds: 1. none - PMHx: none; - PSHx: right forearm/ wrist; - Social history: Smoking status: Patient uses tobacco products, current every day smoker. No barriers to communication noted, The patient speaks fluent Ecuadorean, Speaks appropriately for age. - Family history: Not pertinent. - : The pt / caregiver states he / she is not on anticoagulants. Home medication list is obtained from the patient. - Exposure Risk Screening:: None identified. 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 States irregular menses. Recent ld5 Vital Signs: 03:01 BP 134 / 85; Pulse 73; Resp 18; Temp 98.1; Pulse Ox 95% on R/A; Weight 104.33 kg / ld5 230.01 lbs (R); Height 5 ft. 8 in. (172.72 cm) (R); Pain 7/10; 05:36 BP 117 / 79 (auto/); mv5 05:37 Pulse 60 MON; Pulse Ox 94% ; mv5 06:06 BP 117 / 80 (auto/); mv5 06:06 Pulse 68 MON; Pulse Ox 93% ; mv5 06:36 BP 121 / 75 (auto/); mv5 06:36 Pulse 62 MON; Pulse Ox 91% ; mv5 07:53 BP 120 / 80; Pulse 61; Resp 18; Temp 96.4(O); Pulse Ox 95% on R/A; Pain 0/10; mcp 03:01 Body Mass Index 34.97 (104.33 kg, 172.72 cm) ld5 MDM: 03:36 [facility] [place] Agreement was scanned into [employer] and attached to record. hs2 03:48 IV Saline Lock ordered. cs11 03:48 NS 0.9% 1000 ml IV at bolus once ordered. cs11 03:49 CBC with Diff Ordered. EDMS 03:49 MED Profile Ordered. EDMS 03:49 Liver Profile Ordered. EDMS 03:49 Amylase Ordered. EDMS 03:49 Lipase Ordered. EDMS 03:49 Ultrasound Abd Limited Ordered. EDMS 03:49 Financial registration complete. hs2 04:48 morphine 4 mg IVP once ordered. cs11 05:30 CBC with Diff Reviewed. cs11 05:30 MED Profile Reviewed. cs11 05:30 Liver Profile Reviewed. cs11 05:30 Amylase Reviewed. cs11 05:30 Lipase Reviewed. cs11 05:30 Ultrasound Abd Limited Reviewed. cs11 05:35 BED REQUEST+ADM ordered. EDMS 06:05 Admission / Observation Status ordered. EDMS 06:05 NPO DIET ordered. EDMS 06:36 Ciprofloxacin 400 mg IVPB at 200 mL/hr once over 60 mins ordered. nov 07:51 metroNIDAZOLE 500 mg IVPB at 100 mL/hr once over 60 mins ordered. [facility] 01/13 13:07 T-Sheet-- Draft Copy was scanned into [employer] and attached to record. gb Administered Medications: 01/12 03:59 Drug: NS 0.9% 1000 ml [sodium chloride 0.9 % intravenous solution] Route: IV; Rate: mv5 bolus; Site: left antecubital; 05:26 Drug: morphine 4 mg [morphine 4 mg/mL intravenous cartridge (1 mL)] Route: IVP; Site: mv5 right antecubital; 05:57 Follow up: Response: No Adverse Reaction mv5 06:43 Drug: Ciprofloxacin 400 mg [ciprofloxacin 400 mg/200 mL in 5 % dextrose intravenous mv5 piggyback] Route: IVPB; Rate: 200 mL/hr; Infused Over: 60 mins; Site: right antecubital; 07:51 Drug: metroNIDAZOLE 500 mg [metronidazole 500 mg/100 mL-sodium chloride(iso) [facility] intravenous piggyback] Route: IVPB; Rate: 100 mL/hr; Infused Over: 60 mins; Site: right antecubital; Signatures: Dispatcher [employer] EDMS Xenia Guadarrama RN RN jan Peters, Mary, RN RN [facility] Elizabeth Uribe, Diana BurnetteRN RN ld5 Twin Rogers, DO cs11 Douglas Rainey RN RN mts Malgorzata Dahl, Reg Reg hs2 Daisy Sandoval,RN RN mv5 The chart was reviewed and I authenticate all verbal orders and agree with the evaluation and treatment provided.Attachments: 03:36 [facility] Payment Agreement hs2 01/13 13:07 T-Sheet-- Draft Copy gb Chart Complete MTDD
[2017-01-14] MEDS ORDERED: LIDOCAINE 2% INJ 100 MG/5 ML SYRINGE As Ordered ONE (16:08)
[2017-01-14] MEDS ORDERED: PROPOFOL 200 MG/20 ML VIAL As Ordered ONE ×2 (16:08→18:47)
[2017-01-14] MEDS ORDERED: ROCURONIUM BROMIDE 50 MG/5 ML VIAL As Ordered ONE ×2 (16:08→17:46)
[2017-01-14] MEDS ORDERED: fentaNYL 250 MCG/5 ML INJECTION (J3010) As Ordered ONE (16:09)
[2017-01-14] MEDS ORDERED: MIDAZOLAM INJ 2 MG/2 ML VIAL (J2250) As Ordered ONE (16:09)
[2017-01-14] MEDS ORDERED: BUPIVACAINE HCL 0.25% 30 ML VIAL As Ordered ONE (16:38)
[2017-01-14] MEDS ORDERED: LIDOCAINE 1% SDV INJ 30 ML VIAL As Ordered ONE (16:38)
[2017-01-14] MEDS ORDERED: CONRAY-60 60% 50ML VIAL (Q9961) As Ordered ONE (16:38)
[2017-01-14] MEDS ORDERED: dexameTHASONE 4 MG/ML 1ML VIAL (J1100) As Ordered ONE (17:12)
[2017-01-14] MEDS ORDERED: NEOSTIGMINE 1MG/ML 5 ML SYRINGE (J2710) As Ordered ONE (17:22)
[2017-01-14] MEDS ORDERED: GLYCOPYRROLATE INJ 0.2 MG/ML 2 ML VIAL As Ordered ONE (17:22)
[2017-01-14] MEDS ORDERED: METOCLOPRAMIDE INJ 10MG/2ML VIAL (J2765) As Ordered ONE (17:22)
[2017-01-14] MEDS ORDERED: ONDANSETRON 4MG/2ML VIAL (J2405) As Ordered ONE (17:22)
[2017-01-14] MEDS ORDERED: KETOROLAC 60 MG/2 ML VIAL (J1885) As Ordered ONE (17:36)
[2017-01-14] MEDS ORDERED: LIDOCAINE 1% SDV INJ 30 ML VIAL XX ONE (17:38)
[2017-01-14] MEDS ORDERED: CONRAY-60 60% 50ML VIAL (Q9961) XX ONE (17:38)
[2017-01-14] MEDS ORDERED: BUPIVACAINE HCL 0.25% 30 ML VIAL XX ONE (17:38)
[2017-01-14] MEDS ORDERED: fentaNYL 100 MCG/2 ML INJECTION (J3010) As Ordered ONE (18:19)
[2017-01-14] MEDS ORDERED: CIPROFLOXACIN/D5W 400 MG/200 ML BAG (J0744) As Ordered ONE (18:33)
[2017-01-14] MEDS ORDERED: LR 1,000 ML IV SCH (19:15)
[2017-01-14] MEDS ORDERED: PERCOCET 5MG/325MG TAB PO PRN (19:15)
[2017-01-14] MEDS ORDERED: fentaNYL 100 MCG/2 ML INJECTION (J3010) IV PRN (19:15)
[2017-01-14] MEDS: NORCO, ANEXSIA 5/325MG TABLET (HYDROcodone/ACETAMINOPHEN) PO PRN (20:45)
[2017-01-15 00:15] VITALS: BP 113/58
[2017-01-15 00:55] VITALS: BP 119/76
[2017-01-15] MEDS: metroNIDAZOLE 500 MG in APPROPRIATE DILUENT 1 EA IV SCH ×2 (01:03→08:21)
[2017-01-15 01:31] LABS: MEAN CORPUSCULAR HEMOGLOBIN 28.7 pg (27.0-33.0); MEAN CORPUSCULAR VOLUME 86.9 fl (80.0-96.0); RED CELL DISTRIBUTION WIDTH 15.4 % (11.5-14.5); WHITE BLOOD COUNT 9.4 K/mm3 (4.0-10.0)
[2017-01-15 02:00] VITALS: BP 123/68
[2017-01-15] MEDS ORDERED: KETOROLAC 30 MG/ML VIAL (J1885) IV PRN (02:00)
[2017-01-15 04:00] VITALS: BP 111/73
[2017-01-15] MEDS: LR 1,000 ML IV SCH (05:38)
[2017-01-15] MEDS: CIPROFLOXACIN 400 MG in APPROPRIATE DILUENT 1 EA IV SCH (06:31)
[2017-01-15 06:56] LABS: BASO % 0.2 % (0.0-1.0); EOS # 0.1 K/mm3 (0.0-0.50); EOS % 0.7 % (0.0-3.0); LARGE UNSTAINED CELL # 0.1 K/mm3 (0.0-0.4); LARGE UNSTAINED CELL % 1.1 % (0.0-4.0); LYMPH % 11.3 % (24.0-44.0); MEAN CORPUSCULAR HGB CONC 32.4 g/dl (32.0-36.5); MEAN CORPUSCULAR VOLUME 86.6 fl (80.0-96.0); MONO # 0.4 K/mm3 (0.0-0.8); MONO % 4.4 % (0.0-5.0); NEUTROPHILS # 7.3 K/mm3 (1.8-7.7); NEUTROPHILS % 82.4 % (36.0-66.0); PLATELET COUNT, AUTOMATED 234 k/mm3 (150-450); RED CELL DISTRIBUTION WIDTH 15.5 % (11.5-14.5); WHITE BLOOD COUNT 8.9 K/mm3 (4.0-10.0)
[2017-01-15 07:08] LABS: ALBUMIN 2.8 GM/DL (3.2-5.2); ALBUMIN/GLOBULIN RATIO 0.88 (1.00-1.93); ALKALINE PHOSPHATASE 168 U/L (45-117); ALT/SGPT 261 U/L (12-78); ANION GAP 10 MEQ/L (8-16); AST/SGOT 79 U/L (15-37); BILIRUBIN,TOTAL 1.9 MG/DL (0.2-1.0); BLOOD UREA NITROGEN 9 MG/DL (7-18); CALCIUM LEVEL 8.4 MG/DL (8.5-10.1); CARBON DIOXIDE LEVEL 25 MEQ/L (21-32); CHLORIDE LEVEL 105 MEQ/L (98-107); CREATININE FOR GFR 0.62 MG/DL (0.55-1.02); GLOMERULAR FILTRATION RATE > 60.0 (>60); GLUCOSE, FASTING 123 MG/DL (70-105); POTASSIUM SERUM 4.1 MEQ/L (3.5-5.1); SODIUM LEVEL 140 MEQ/L (136-145)
[2017-01-15 08:00] VITALS: BP 110/82
[2017-01-15] MEDS: SENOKOT S TAB PO SCH (08:14)
[2017-01-15] MEDS: NORCO, ANEXSIA 5/325MG TABLET (HYDROcodone/ACETAMINOPHEN) PO PRN (08:21)
--- NOTE | 2017-01-15 08:58 | REP ---
C-ARM VIEW DURING INTRAOPERATIVE CHOLANGIOGRAM: A single C-arm view is performed. Contrast is injected into the biliary system. Common bile duct is visualized and appears normal in caliber with no filling defect. The distal end of the common bile duct is not opacified and cannot be evaluated. There is passage of contrast into the duodenum. Total fluoroscopy time is 42 seconds. Signed by Dieter Narayan MD 01/15/2017 06:29 P
[2017-01-15 12:00] VITALS: BP 138/77
[2017-01-15] MEDS ORDERED: NORCOTAB PO (12:56)
--- NOTE | 2017-01-18 11:52 | REP ---
Clinical: ERCP. Technique: Real time intraoperative fluoroscopic imaging. Findings: ERCP examination demonstrates retrograde opacification of the common bile duct, hepatic ducts, cystic duct and gallbladder. There is no evidence for biliary ductal dilatation. Scattered filling defects identified within the cystic and common bile duct during the exam are consistent with choledocholiths. Total fluoroscopic time 9 minutes 55 seconds. Impression: No biliary ductal dilatation. Filling defects compatible with cystic and common bile duct stones. Signed by Tuan Lujan MD 01/18/2017 11:44 A
--- NOTE | 2017-02-03 11:30 | RO ---
DATE OF PROCEDURE: 01/14/2017 PREOPERATIVE DIAGNOSES: 1. Cholelithiasis. 2. Elevated liver function tests (LFTs) with jaundice, status post endoscopic retrograde cholangiopancreatography (ERCP). 3. Fatty liver. POSTOPERATIVE DIAGNOSES: 1. Cholelithiasis. 2. Elevated liver function tests with jaundice, status post endoscopic retrograde cholangiopancreatography. 3. Fatty liver. PROCEDURE PERFORMED: Laparoscopic cholecystectomy with intraoperative cholangiogram. SURGEON: Dr. Giovany Martino REHEATER HELPER: None. ANESTHESIA: General anesthesia. ESTIMATED BLOOD LOSS: Less than 25 mL. COMPLICATIONS: None. REMARKS: The patient tolerated the procedure well. Cholangiogram shows nondilated biliary tree. No stones found. The contrast went into the duodenum. PROCEDURE NOTE: Ms. Granado is a 21-year-old female admitted for abdominal pain and jaundice. She was found to have elevated LFTs with total bilirubin of 5.4, direct bilirubin of 4.2. Imaging study shows evidence for cholelithiasis with common bile duct measuring 4.9 mm. This is consistent with biliary obstruction most likely from a choledocholithiasis. She was admitted under my service. We started her on antibiotics. We used Unasyn and metronidazole. Gastroenterology was consulted. Dr. Galvez brought her to the operating room for an ERCP. The procedure proved difficult but was able to get through; and at that time, no further stones, but sludge was found in the common bile duct. She did well. Her LFTs continued to trend down. She was brought back to the operating room for laparoscopic cholecystectomy. She did well in the procedure. Intraoperative cholangiogram was done, showing no evidence of stones despite her LFTs continued to be mildly elevated. Midnight off the surgery, the patient had an episode of feeling dizzy and lightheaded. Her blood pressure was noted to be low. She was given intravenous (IV) fluid boluses. By the morning, she felt better. Her hemoglobin and hematocrit dropped a bit with the preoperative hemoglobin and hematocrit at 12.9, and this dropped to 9.6. This was repeated several hours after, and she proved to be stable at 9.3, at that time, the patient is asymptomatic, noted to be doing well, tolerating diet. She was subsequently discharged home.
--- NOTE | 2017-02-03 11:41 | DSES ---
DATE OF ADMISSION: 01/12/2017 DATE OF DISCHARGE: 01/15/2017 DISCHARGE DIAGNOSES: 1. Choledocholithiasis, status post endoscopic retrograde cholangiopancreatography (ERCP) by Dr. Galvez. 2. Cholelithiasis, status post laparoscopic cholecystectomy with intraoperative cholangiogram done by me. 3. Elevated liver function tests (LFTs) secondary to biliary obstruction, resolved. 4. Postoperative anemia, stable. 5. Morbid obesity. 6. Post-ERCP pancreatitis. DISCHARGE MEDICATIONS: - acetaminophen/hydrocodone 5/325 mg tablet, 1-2 tablets every 4 hours as needed for pain, MDD of 6, prescription was given DISCHARGE INSTRUCTIONS: 1. Diet: Low-fat diet. 2. Activity: Activity times 2 weeks, no heavy lifting. 3. Wound care: The patient may shower. Remove top gauze dressings. Keep Steri-Strips in place for 1 week. Pat incisions until dry. 4. Followup: 2 weeks' time. 5. Call if with fevers, chills, severe abdominal pain, return of jaundice. HOSPITAL COURSE: Ms. Granado is a healthy 21-year-old female who presented with the sudden onset of abdominal pain of about 3 days' duration with associated nausea and vomiting. She was found to have elevated LFTs with mild leukocytosis. She had an abdominal ultrasound in the emergency room showing evidence for cholelithiasis. Mildly dilated common bile duct 4.9 mm. Her bilirubin was elevated to 5.4 with a direct fraction of 4.2, as well as elevated AST and ALT and alkaline phosphatase. She was suspected to have biliary obstruction, most likely from transient passage of stones in her common bile duct. Gastroenterology was consulted. She underwent ERCP on 01/14/2017. The procedure proved difficult, but Dr. Galvez was able to cannulate the common bile duct. Sludge was removed. She had a stent left in place in the pancreatic duct. She had some pain the next morning. Her amylase and lipase were elevated, mildly consistent with post-ERCP pancreatitis. The following day, she felt improved. She underwent laparoscopic cholecystectomy procedure, was straightforward. Intraoperative cholangiogram did not show any further evidence of stones. Midnight of the surgery, she had an episode of dizziness.. Likewise, noted to have some mild decrease in her blood pressure. She was suspected to have some mild bleeding. She stabilized with a fluid bolus. Her hemoglobin and hematocrit returned stable and subsequently was discharged home the following day.
== END 2017-01-15 13:30 | disposition home or self-care (01) | DRG 263 ==
LOC: M ED 02:46 → M ED INP 05:58 → M PED 08:02
PROVIDERS: ADMIT Surgery; ATTEND Surgery
PROC: 0FC98ZZ Extirpation of Matter from Common Bile Duct, Via Natural or Artificial Opening Endoscopic (ICD-10-PCS; 2017-01-12)
PROC: 0FT44ZZ Resection of Gallbladder, Percutaneous Endoscopic Approach (ICD-10-PCS; principal; 2017-01-14 15:23)
DX: K80.51 Calculus of bile duct without cholangitis or cholecystitis with obstruction (principal); K85.90 Acute pancreatitis without necrosis or infection, unspecified; E66.01 Morbid (severe) obesity due to excess calories; D64.9 Anemia, unspecified; Z68.35 Body mass index [BMI] 35.0-35.9, adult; Z88.0 Allergy status to penicillin; Z88.8 Allergy status to other drugs, medicaments and biological substances

== ENCOUNTER → 2017-01-29 | Outpatient (CLI) | payer OTHER ==
[~2017-01-29] MED LIST changes: +NORCOTAB PO
--- NOTE | 2017-01-29 13:53 | REP ---
KUB, TWO VIEWS: HISTORY: Foreign body. A small amount of air is present in small and large intestine. There are air fluid levels or dilated loops of intestine. There is no pneumoperitoneum. There is no radiopaque foreign body. Surgical clips are present in the right upper quadrant. IMPRESSION: Nonspecific bowel gas pattern. Signed by Franklin Manzano MD 01/29/2017 01:54 P
== END ==
LOC: M RAD 11:00
PROVIDERS: ATTEND Internal Medicine Gastroenterology
DX: Z98.890 Other specified postprocedural states (principal)

== ENCOUNTER → 2017-01-29 | Outpatient (CLI) | payer OTHER ==
[2017-01-29 12:02] LABS: MEAN CORPUSCULAR HEMOGLOBIN 28.4 pg (27.0-33.0); MEAN CORPUSCULAR HGB CONC 32.6 g/dl (32.0-36.5); MEAN CORPUSCULAR VOLUME 87.2 fl (80.0-96.0); RED CELL DISTRIBUTION WIDTH 15.1 % (11.5-14.5)
[2017-01-29 12:19] LABS: ALBUMIN 3.6 GM/DL (3.2-5.2); ALBUMIN/GLOBULIN RATIO 0.97 (1.00-1.93); BILIRUBIN,DIRECT 0.5 MG/DL (0.0-0.2); BILIRUBIN,TOTAL 0.9 MG/DL (0.2-1.0); TOTAL PROTEIN 7.3 GM/DL (6.4-8.2)
== END ==
LOC: M LAB 11:04
PROVIDERS: ATTEND Surgery
DX: R17 Unspecified jaundice (principal); K80.41 Calculus of bile duct with cholecystitis, unspecified, with obstruction

== ENCOUNTER → 2017-06-28 | Outpatient (REF) | payer OTHER | LOC: M LAB REF 17:21 | PROVIDERS: ATTEND Physician Assistant | DX: J02.0 Streptococcal pharyngitis (principal) ==

== ENCOUNTER 2019-02-08 03:51 | Emergency (ER) | payer OTHER ==
[~2019-02-08] VITALS: Ht 175.3 cm; Wt 89.0 kg
[~2019-02-08 03:51] MED LIST changes: -ACET50TA PO; +MAPA500T2 PO
[2019-02-08] MEDS ORDERED: MORPHINE 10 MG/ML 1ML VIAL (J2270) IM ONE (04:30)
[2019-02-08 05:10] LABS: HCG, SERUM QUALITATIVE NEGATIVE (NEGATIVE)
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
[2019-02-08 08:58] VITALS: BP 116/69
== END 2019-02-08 09:05 | disposition home or self-care (01) ==
LOC: EDBD 03:51 → M ED 03:51
DX: S22.088A Other fracture of T11-T12 vertebra, initial encounter for closed fracture (principal); S00.83XA Contusion of other part of head, initial encounter; V49.09XA Driver injured in collision with other motor vehicles in nontraffic accident, initial encounter; Y92.410 Unspecified street and highway as the place of occurrence of the external cause; Z88.0 Allergy status to penicillin; Z88.2 Allergy status to sulfonamides; Z88.8 Allergy status to other drugs, medicaments and biological substances
CPT/HCPCS: 70450; 72128; 72131; 84703; 96372; 99284; J2270

== ENCOUNTER → 2019-03-03 | Outpatient (CLI) | payer OTHER ==
[~2019-03-03] MED LIST changes: +HYDR-3715 PO; -NORCOTAB PO
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
== END ==
LOC: M RAD 12:32
PROVIDERS: ATTEND Physician Assistant
DX: S22.088D Other fracture of T11-T12 vertebra, subsequent encounter for fracture with routine healing (principal); M51.26 Other intervertebral disc displacement, lumbar region; M43.06 Spondylolysis, lumbar region

== ENCOUNTER 2019-06-29 16:06 | Emergency (ER) | payer OTHER ==
[~2019-06-29] VITALS: Ht 175.3 cm; Wt 90.9 kg
[2019-06-29] MEDS ORDERED: LIDO5DIS41 TOP (18:39)
[2019-06-29] MEDS ORDERED: IBUP80TA PO (18:39)
[2019-06-29] MEDS ORDERED: CYCL5TAB PO (18:39)
--- NOTE | 2019-06-29 18:43 | REP ---
Clinical: Trauma. Technique: AP, lateral, bilateral oblique and coned-down views of the lumbosacral spine. Findings: Chronic L5 spondylolysis without spondylolisthesis. Remainder examination is normal. No acute fracture / compression injury or subluxation. Impression: Chronic L5 spondylolysis. Electronically Signed by Tuan Lujan MD 06/29/2019 06:35 P
[2019-06-29 19:10] VITALS: BP 143/69
== END 2019-06-29 19:13 | disposition home or self-care (01) ==
LOC: M ED 16:06
DX: S39.012A Strain of muscle, fascia and tendon of lower back, initial encounter (principal); W10.8XXA Fall (on) (from) other stairs and steps, initial encounter; Y92.018 Other place in single-family (private) house as the place of occurrence of the external cause; M43.06 Spondylolysis, lumbar region; K76.0 Fatty (change of) liver, not elsewhere classified; Z88.0 Allergy status to penicillin; Z88.2 Allergy status to sulfonamides; F17.210 Nicotine dependence, cigarettes, uncomplicated

== ENCOUNTER 2020-01-16 12:53 | Emergency (ER) | payer OTHER ==
[~2020-01-16] VITALS: Ht 175.3 cm; Wt 109.0 kg
[~2020-01-16 12:53] MED LIST changes: +CYCL5TAB PO; +IBUP80TA PO; +LIDO5DIS41 TOP
[2020-01-16] MEDS ORDERED: prenatal vit (13:01)
[2020-01-16] MEDS ORDERED: SIMETHICONE 80 MG CHEW TAB PO ONE (14:00)
[2020-01-16] MEDS ORDERED: FAMOTIDINE 20 MG TAB PO ONE (14:00)
[2020-01-16 14:39] LABS: BASO # 0.1 10^3/uL (0.0-0.2); BASO % 0.7 % (0.0-1.0); EOS # 0.1 10^3/uL (0.0-0.5); EOS % 1.1 % (0.0-3.0); HEMATOCRIT 41.7 % (36.0-47.0); LYMPH # 2.6 10^3/uL (1.5-5.0); LYMPH % 35.3 % (24.0-44.0); MEAN CORPUSCULAR HEMOGLOBIN 30.5 pg (27.0-33.0); MEAN CORPUSCULAR HGB CONC 33.6 g/dl (32.0-36.5); MEAN CORPUSCULAR VOLUME 90.8 fl (80.0-96.0); MONO # 0.5 10^3/uL (0.0-0.8); MONO % 6.5 % (0.0-5.0); NEUTROPHILS # 4.1 10^3/uL (1.5-8.5); NEUTROPHILS % 56.1 % (36.0-66.0); PLATELET COUNT, AUTOMATED 241 10^3/uL (150-450); RED BLOOD COUNT 4.59 10^6/uL (4.00-5.40); WHITE BLOOD COUNT 7.3 10^3/uL (4.0-10.0)
[2020-01-16 15:09] LABS: ALT/SGPT 82 U/L (12-78); BILIRUBIN,DIRECT 0.2 MG/DL (0.0-0.2); BILIRUBIN,TOTAL 0.4 MG/DL (0.2-1.0); CK-MB VALUE MASS 1.7 NG/ML (<3.6); CPK CREATINE PHOSPHOKINASE 140 U/L (26-192); LIPASE 173 U/L (73-393); MB/CK RELATIVE INDEX 1.21 (< OR =4); TOTAL PROTEIN 7.2 GM/DL (6.4-8.2); TROPONIN I < 0.02 NG/ML (< 0.10)
[2020-01-16 15:54] VITALS: BP 176/85
[2020-01-16] MEDS ORDERED: KEFL500C17 PO (15:58)
--- NOTE | 2020-01-16 20:32 | ECGEPIP ---
[facility] - ED Test Date: 2020-01-16 Pat Name: MICHAEL DUONG Department: Room: - Gender: Female Office Support: : 1995 Requested By: DENICE BEYER Order Number: [id number] Reading MD: Shannon Spaulding Measurements Intervals [place] Rate: 68 P: 30 VT: 133 QRS: 27 QRSD: 90 T: 8 QT: 398 QTc: 425 Interpretive Statements SINUS RHYTHM NO PRIOR Electronically Signed on 01-16-2020 20:32:40 EST by Shannon Spaulding
== END 2020-01-16 16:04 | disposition home or self-care (01) ==
LOC: M ED 12:53
DX: O26.891 Other specified pregnancy related conditions, first trimester (principal); R10.13 Epigastric pain; O23.41 Unspecified infection of urinary tract in pregnancy, first trimester; O26.611 Liver and biliary tract disorders in pregnancy, first trimester; Z3A.01 Less than 8 weeks gestation of pregnancy; Z88.0 Allergy status to penicillin; Z88.2 Allergy status to sulfonamides

== ENCOUNTER → 2020-01-23 | Outpatient (REF) | payer OTHER ==
[~2020-01-23] MED LIST changes: +KEFL500C17 PO; +prenatal vit
[2020-01-23 18:00] LABS: HEMATOCRIT 39.7 % (36.0-47.0); HEMOGLOBIN 13.3 g/dl (12.0-15.5); MEAN CORPUSCULAR HEMOGLOBIN 30.2 pg (27.0-33.0); MEAN CORPUSCULAR HGB CONC 33.5 g/dl (32.0-36.5); MEAN CORPUSCULAR VOLUME 90.2 fl (80.0-96.0); PLATELET COUNT, AUTOMATED 257 10^3/uL (150-450); WHITE BLOOD COUNT 9.2 10^3/uL (4.0-10.0)
[2020-01-23 18:48] LABS: HCG, SERUM QUANTITATIVE 32928 MIU/ML
[2020-01-24 11:56] LABS: RUBELLA IgG QUALITATIVE EQUIVOCAL (IMMUNE)
[2020-01-24 12:25] LABS: HEPATITIS C VIRUS ABY INDEX < 0.0 INDEX (<0.8); HIV 1&2 SCREEN CENTAUR NEGATIVE (NEGATIVE)
== END ==
LOC: M LAB REF 16:48
PROVIDERS: ATTEND Obstetrics & Gynecology
DX: O36.90X0 Maternal care for fetal problem, unspecified, unspecified trimester, not applicable or unspecified (principal); Z3A.00 Weeks of gestation of pregnancy not specified

== ENCOUNTER → 2020-01-30 | Outpatient (CLI) | payer OTHER ==
--- NOTE | 2020-01-30 11:30 | REP ---
FIRST TRIMESTER ULTRASOUND: Real-time sonographic evaluation of the gravid uterus is performed. There is a single living intrauterine gestation. Estimated gestational age is 7 weeks 0 days based on a crown-rump length of 9 mm. EDC 09/17/2020. heart rate 131 beats per minutes. Small subchorionic hemorrhage is seen along the superior aspect of the gestational sac. The thickness is 12 mm maximally. No gross adnexal region abnormality is seen. Right ovary is visualized and appears normal. Electronically Signed by Dieter Narayan MD 01/30/2020 07:54 P
== END ==
LOC: M RAD 10:15
PROVIDERS: ATTEND Obstetrics & Gynecology
DX: O36.80X0 Pregnancy with inconclusive fetal viability, not applicable or unspecified (principal); Z3A.01 Less than 8 weeks gestation of pregnancy

== ENCOUNTER → 2020-05-01 | Outpatient (CLI) | payer OTHER ==
--- NOTE | 2020-05-03 03:19 | REP ---
Clinical: Anatomical evaluation. Comparison: 01/30/2020 . Findings: Examination demonstrates a single live intrauterine in cephalic presentation. motion is identified by technologist. Placenta is noted anterior and grade I without evidence for placenta previa or abruption. Amniotic fluid volume is normal. Cervix measures 4.3 cm in length and appears closed. Nuchal cord cannot be excluded. Gestational age by LMP 21 weeks 0 days with LUCAS 09/11/2020 . Gestational age by current measurements 20 weeks 2-day with LUCAS is 09/16/2020 . FHR equals 141 beats per minute. BPD 4.7 cm 20 weeks 1 day HC 17.8 cm 20 weeks 2 days AC 14.8 cm 20 weeks 1 day FL 3.3 cm 20 weeks 3 days HL 3.1 cm 20 weeks 3 days HC/AC ratio 1.20 Estimated weight 343 grams ( 23rd percentile). Anatomical assessment demonstrates normal structures including cranium, choroid plexus, cerebellum/posterior fossa, facial features, lungs, diaphragm, stomach, cord insertion/three-vessel cord, kidneys/bladder, spine, and the upper extremities. Limited evaluation of the cavum, heart/ventricle outflow tracts, and lower extremities due to positioning. Impression: Single live intrauterine in cephalic presentation demonstrating appropriate interval growth. Anatomical limitations as noted above. Remainder of the anatomical assessment is complete and normal. Electronically Signed by Tuan Lujan MD 05/03/2020 03:11 A
== END ==
LOC: M RAD 15:29
PROVIDERS: ATTEND Obstetrics & Gynecology
DX: Z36.89 Encounter for other specified antenatal screening (principal); Z3A.20 20 weeks gestation of pregnancy

== ENCOUNTER → 2020-06-04 | Outpatient (CLI) | payer OTHER ==
--- NOTE | 2020-06-04 17:01 | REP ---
REASON: Followup anatomy. The prior examination suboptimally visualized cavum septum pellucidum, four-chamber heart and left ventricular outflow tract, and the lower extremities. Multiple ultrasonographic images of the gravid uterus show a single living intrauterine gestation in the cephalic presentation. Doppler interrogation of the heart shows a heart rate of 168 beats per minute. The placenta is fundal and not low lying. The cervix measures 3.7 cm in length and is closed. The subjective amniotic fluid volume is within normal limits. Evaluation of the maternal adnexal spaces showed no abnormalities. The four-chamber heart view, left ventricular outflow tract, cavum septum pellucidum, and lower extremities were all visualized today and seen to be within normal limits. BPD 6.4 cm = 25 weeks 5 days HC 23.4 cm = 25 weeks 3 days AC 21.7 cm = 26 weeks 1 day FL 4.7 cm = 25 weeks 5 days The estimated weight is 867 grams, which is at the 43rd percentile for 25 weeks 6 day gestational age. IMPRESSION: Single living intrauterine gestation, as described above, with an estimated gestational age of 25 weeks 6 days via composite criteria and an estimated date of delivery of 09/11/2020 by today's exam. anatomical screen is complete, as described above. Electronically Signed by Jack Pineda DO 06/04/2020 05:32 P
== END ==
LOC: M RAD 10:31
PROVIDERS: ATTEND Advanced Practice Midwife
DX: Z34.82 Encounter for supervision of other normal pregnancy, second trimester (principal); Z3A.25 25 weeks gestation of pregnancy

== ENCOUNTER → 2020-06-18 | Outpatient (CLI) | payer OTHER ==
[2020-06-18 17:37] LABS: HEMATOCRIT 33.7 % (36.0-47.0); HEMOGLOBIN 11.2 g/dl (12.0-15.5); MEAN CORPUSCULAR HEMOGLOBIN 30.5 pg (27.0-33.0); MEAN CORPUSCULAR HGB CONC 33.2 g/dl (32.0-36.5); MEAN CORPUSCULAR VOLUME 91.8 fl (80.0-96.0); PLATELET COUNT, AUTOMATED 210 10^3/uL (150-450); RED BLOOD COUNT 3.67 10^6/uL (4.00-5.40); WHITE BLOOD COUNT 10.6 10^3/uL (4.0-10.0)
== END ==
LOC: M WUC 13:17
PROVIDERS: ATTEND Obstetrics & Gynecology
DX: Z34.82 Encounter for supervision of other normal pregnancy, second trimester (principal); Z3A.00 Weeks of gestation of pregnancy not specified

== ENCOUNTER 2020-09-21 02:24 | Inpatient (IN) | payer OTHER ==
[2020-09-21] VITALS (11 sets, daily range): BP systolic 107–142; BP diastolic 50–82
[~2020-09-21] VITALS: Ht 175.3 cm; Wt 131.1 kg
[2020-09-21] MEDS ORDERED: LR 1,000 ML IV SCH (03:17)
[2020-09-21] MEDS ORDERED: LACTATED RINGER'S 1000 ML IV STA (03:17)
[2020-09-21 04:20] LABS: HEMATOCRIT 34.9 % (36.0-47.0); HEMOGLOBIN 11.2 g/dl (12.0-15.5); MEAN CORPUSCULAR HEMOGLOBIN 27.5 pg (27.0-33.0); MEAN CORPUSCULAR HGB CONC 32.1 g/dl (32.0-36.5); MEAN CORPUSCULAR VOLUME 85.7 fl (80.0-96.0); PLATELET COUNT, AUTOMATED 214 10^3/uL (150-450); RED BLOOD COUNT 4.07 10^6/uL (4.00-5.40); WHITE BLOOD COUNT 12.5 10^3/uL (4.0-10.0)
[2020-09-21] MEDS ORDERED: ONDANSETRON 4MG/2ML VIAL IV ONE (04:45)
[2020-09-21] MEDS ORDERED: BUTORPHANOL 2 MG/ML INJ (J0595) IV ONE (04:45)
[2020-09-21] MEDS ORDERED: PROMETHAZINE INJ 25 MG/ML VIAL (J2550) IM ONE (04:45)
[2020-09-21] MEDS ORDERED: PROMETHAZINE INJ 25 MG/ML VIAL (J2550) IV ONE (05:00)
[2020-09-21] MEDS ORDERED: OXYTOCIN 30 UNITS IN 0.9% NaCl 500ML IV BAG (J2590) As Ordered ONE (06:32)
[2020-09-21 07:43] LABS: CORD GAS ABE A -2.1; CORD GAS HCO3 A 25.7 MEQ/L; CORD GAS O2 SAT A 43.1 %; CORD GAS PH A 7.279 UNITS; CORD GAS PO2 A 23.9 mmHg; CORD GAS SBC A 21.4 MEQ/L; CORD GAS TCO2 A 27.4 MEQ/L
[2020-09-21 07:45] LABS: CORD GAS ABE V -2.9; CORD GAS HCO3 V 22.9 MEQ/L; CORD GAS O2 SAT V 87.8 %; CORD GAS PCO2 V 43.3 mmHg; CORD GAS PH V 7.341 UNITS; CORD GAS PO2 V 50.8 mmHg; CORD GAS SBC V 21.9 MEQ/L; CORD GAS TCO2 V 24.2 MEQ/L
[2020-09-21] MEDS ORDERED: RHOGAM 300 MCG (1500 IU) INJ (J2790) IM SCH (08:00)
[2020-09-21] MEDS ORDERED: ACETAMINOPHEN 500 MG TAB PO PRN (08:00)
[2020-09-21] MEDS ORDERED: ACETAMINOPHEN TAB 650MG DOSE (2X325MG) PO PRN (08:00)
[2020-09-21] MEDS ORDERED: DOCUSATE SODIUM 100 MG CAP PO PRN (08:00)
[2020-09-21] MEDS ORDERED: DIBUCAINE 1% OINTMENT 30GM TOP PRN (08:00)
[2020-09-21] MEDS ORDERED: IBUPROFEN 600MG TAB PO PRN (08:00)
[2020-09-21] MEDS ORDERED: METHYLERGONOVINE MALEATE 0.2 MG TAB PO PRN (08:00)
[2020-09-21] MEDS ORDERED: MEASLES,MUMPS,RUBELLA VACCINE INJ (MMR-II) (90707) SC SCH (08:00)
[2020-09-21] MEDS ORDERED: OXYTOCIN DRIP 30 UNITS in IV 1 EA IV SCH (08:15)
[2020-09-21] MEDS ORDERED: LIDOCAINE 1% MDV 20ML VIAL SC ONE (08:30)
[2020-09-21] MEDS: PRENATAL VITAMINS CHEWABLE TABLET PO SCH (09:20)
[2020-09-21] MEDS: IBUPROFEN 800 MG TAB PO PRN ×2 (09:59→17:53)
[2020-09-22] MEDS: IBUPROFEN 800 MG TAB PO PRN (03:29)
[2020-09-22 06:00] VITALS: BP 136/76
[2020-09-22] MEDS: PRENATAL VITAMINS CHEWABLE TABLET PO SCH (09:00)
--- NOTE | 2020-09-22 11:29 | IPNPDOC ---
Progress Note Date of Service: Sep 22, 2020 Day#: 1 Progress Note SUBJECT: Doing well without complaints. Ambulating, voiding and pain is well-c ontrolled. Reports minimal lochia. Had some intermitting mild range BP yesterday, but denies Headache, visual changes or abd pain. OBJECTIVE: VITAL SIGNS: Within normal limits, afebrile. Alert and oriented times three. Abdomen: Fundus firm at U-2. Ext: neg calf tenderness. ASSESSMENT: day #1 status post . Recovering in stable condition. PLAN: 1. Continue routine care 2. Discharge plans for tomorrow, possible today pending d/c of baby. VS, I&O, 24H, Fishbone Vital Signs/I&O Vital Signs Date Time Temp Pulse Resp B/P (MAP) Pulse Ox O2 Delivery O2 Flow Rate FiO2 09/22/20 06:00 98.0 72 14 136/76 (96) 09/21/20 02:47 99 Room Air I&O- Last 24 Hours up to 6 AM 09/22/20 06:00 Output Total 700 ml Balance -700 ml RADHA MORENO MD. Sep 22, 2020 11:29
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
== END 2020-09-22 12:50 | disposition home or self-care (01) | DRG 560 ==
LOC: M LDO 02:24 → M LDI 03:23 → M OBS 10:27
PROVIDERS: ADMIT Obstetrics & Gynecology; ATTEND Obstetrics & Gynecology
PROC: 10E0XZZ Delivery of Products of Conception, External Approach (ICD-10-PCS; principal; 2020-09-21)
PROC: 0KQM0ZZ Repair Perineum Muscle, Open Approach (ICD-10-PCS; 2020-09-21)
PROC: 10907ZC Drainage of Amniotic Fluid, Therapeutic from Products of Conception, Via Natural or Artificial Opening (ICD-10-PCS; 2020-09-21)
DX: O48.0 Post-term pregnancy (principal); O70.1 Second degree perineal laceration during delivery; Z37.0 Single live birth; Z3A.40 40 weeks gestation of pregnancy; Z87.891 Personal history of nicotine dependence

== ENCOUNTER → 2021-01-10 | Outpatient (CLI) | payer SELFPAY | LOC: M LABSMTC 13:52 | PROVIDERS: ATTEND Pediatrics | DX: Z20.822 Contact with and (suspected) exposure to COVID-19 (principal) ==

== ENCOUNTER 2022-04-29 08:40 | Emergency (ER) | payer OTHER ==
[~2022-04-29] VITALS: Ht 175.3 cm; Wt 134.0 kg
[2022-04-29 08:42] VITALS: BP 140/73
[2022-04-29] MEDS ORDERED: diphenhydrAMINE 25MG CAP PO ONE (11:45)
== END 2022-04-29 12:30 | disposition home or self-care (01) ==
LOC: M ED 08:40
DX: S50.861A Insect bite (nonvenomous) of right forearm, initial encounter (principal); F17.200 Nicotine dependence, unspecified, uncomplicated; Z88.0 Allergy status to penicillin; Z88.2 Allergy status to sulfonamides; Y93.9 Activity, unspecified; Y92.9 Unspecified place or not applicable